=== PATIENT | female | born 1960 | race Caucasian/White ===

== ENCOUNTER 2017-01-11 16:05 | Observation (INO) | payer MEDICARE ==
[~2017-01-11] VITALS: Ht 162.6 cm; Wt 66.0 kg
[2017-01-11 16:08] VITALS: BP 122/86; PULSE 94; RESP 18; TEMP 99.1; O2SAT 97
[2017-01-11] MEDS ORDERED: SODIUM CHLORIDE 0.9% FLUSH 10 ML FLUSH IVF PRN (16:45)
[2017-01-11] MEDS ORDERED: SODIUM CHLOR 0.9% 1000 ML INJ 1,000 ML IV ONE (16:45)
[2017-01-11] MEDS ORDERED: ONDANSETRON HCL 4 MG/2 ML VIAL IVP ONE (16:45)
--- NOTE | 2017-01-11 16:51 | PD ---
HPI Chief Complaint: Neuro Symptoms/ Deficits Time Seen by Provider: 16:26 Travel History International Travel<30 days: No Contact w/Intl Traveler<30days: No Traveled to known affect area: No History of Present Illness HPI 56-year-old female presents to the emergency department for evaluation of neurological problems. Patient states her symptoms started 5 days ago. She states she has had garbled speech, increasing confusion, verbally abusive which are not typical for her. She also reports unsteady gait. She does report a bilateral frontal headache that radiates to the occipital head. Patient denies any current chest pain or shortness of breath. No abdominal pain. She reports nausea. No diarrhea or constipation. Patient had a 10 day psychiatric admission up [place] last year where she was started on some psychiatric medications. According to the at bedside, these are not the same symptoms she had back then. He states she has some paranoia and depression back then. The patient is tearful on my exam due to her confusion and intermittent garbled speech. Patient does report history of neuropathy the left leg. [facility] Social History Alcohol Use: No Tobacco Use: No Substance Use: No Allergies-Medications (Allergen,Severity, Reaction): Coded Allergies: Penicillins (Verified Allergy, Unknown, 01/11/17) gabapentin (Verified Allergy, Unknown, 01/11/17) morphine (Verified Allergy, Unknown, 01/11/17) Review of Systems Except as stated in HPI: all other systems reviewed are Neg Physical Exam Narrative GENERAL: Well-nourished, well-developed female patient, afebrile. SKIN: Focused skin assessment warm/dry. HEAD: Normocephalic. Atraumatic. ENT: Mucosa is dry. No erythema or exudates. No uvular edema. No uvular, palatal , or tonsillar deviation. Airway patent. Nasal turbinates appear normal without nasal blood, purulent drainage or septal hematoma. Bilateral tympanic membranes are clear without erythema or perforation. EYES: No scleral icterus. No injection or drainage. PERRLA. EOM intact. NECK: Supple, trachea midline. No JVD or lymphadenopathy. CARDIOVASCULAR: Regular rate and rhythm without murmurs, gallops, or rubs. RESPIRATORY: Breath sounds equal bilaterally. No accessory muscle use. Lungs sounds are clear to auscultation. GASTROINTESTINAL: Abdomen soft, non-tender, nondistended. MUSCULOSKELETAL: No cyanosis, or edema. Bilateral upper lower extremities strength 5/5. All extremities are neurovascularly intact. BACK: Nontender without obvious deformity. No CVA tenderness. NEUROLOGICAL: Awake and alert. Cranial nerves II through XII intact. Motor and sensory grossly within normal limits. Five out of 5 muscle strength in all muscle groups. Patient has intermittent garbled speech. Patient is able to complete finger to nose bilaterally and [id number] bilaterally, but is very hard to complete due to her confusion and not remembering the steps to complete it. Patient does report decreased sensation to the left upper extremity, left lower extremity. She does state that the decreased sensation left lower extremity is chronic due to neuropathy. Data Data Last Documented VS Vital Signs Date Time Temp Pulse Resp B/P (MAP) Pulse Ox O2 Delivery O2 Flow Rate FiO2 01/11/17 18:03 89 27 114/77 (89) 96 Room Air 01/11/17 16:08 99.1 Orders Orders Electrocardiogram (01/11/17 16:39) Prothrombin Time / Inr (Pt) (01/11/17 16:39) Act Partial Throm Time (Ptt) (01/11/17 16:39) Complete Blood Count With Diff (01/11/17 16:39) Comprehensive Metabolic Panel (01/11/17 16:39) Creatine Kinase (Cpk) (01/11/17 16:39) Troponin I (01/11/17 16:39) Urinalysis - C+S If Indicated (01/11/17 16:39) Ct Brain W/O Iv Contrast(Rout) (01/11/17 16:39) Chest, Single Ap (01/11/17 16:39) Ecg Monitoring (01/11/17 16:39) Iv Access Insert/Monitor (01/11/17 16:39) Oximetry (01/11/17 16:39) Ondansetron Inj (Zofran Inj) (01/11/17 16:45) Sodium Chloride 0.9% Flush (Ns Flush) (01/11/17 16:45) Sodium Chlor 0.9% 1000 Ml Inj (Ns 1000 M (01/11/17 16:45) Magnesium (Mg) (01/11/17 16:39) Urine Culture (01/11/17 16:45) CKMB (01/11/17 17:00) CKMB% (01/11/17 17:00) Potassium Chloride (Kcl) (01/11/17 18:30) Aspirin (Aspirin) (01/11/17 18:45) Labs Laboratory Tests Test 01/11/17 16:45 01/11/17 17:00 Urine Color YELLOW Urine Turbidity CLOUDY Urine pH 6.0 Urine Specific [place] 1.024 Urine Protein 30 mg/dL Urine Glucose (UA) NEG mg/dL Urine Ketones NEG mg/dL Urine Occult Blood NEG Urine Nitrite NEG Urine Bilirubin NEG Urine Urobilinogen 2.0 MG/DL Urine Leukocyte Esterase LARGE Urine RBC 16 /hpf Urine WBC 37 /hpf Urine Squamous Epithelial Cells 70 /hpf Urine Transitional Epithelial Cells 1 /hpf Urine Amorphous Sediment RARE Urine Bacteria MANY /hpf Urine Hyaline Casts 43 /lpf Urine Mucus FEW /lpf Microscopic Urinalysis Comment CATH-CULTURE IND White Blood Count 4.0 TH/MM3 Red Blood Count 4.50 MIL/MM3 Hemoglobin 13.0 GM/DL Hematocrit 38.4 % Mean Corpuscular Volume 85.2 FL Mean Corpuscular Hemoglobin 28.8 PG Mean Corpuscular Hemoglobin Concent 33.8 % Red Cell Distribution Width 15.3 % Platelet Count 233 TH/MM3 Mean Platelet Volume 7.5 FL Neutrophils (%) (Auto) 52.2 % Lymphocytes (%) (Auto) 35.9 % Monocytes (%) (Auto) 9.1 % Eosinophils (%) (Auto) 2.0 % Basophils (%) (Auto) 0.8 % Neutrophils # (Auto) 2.1 TH/MM3 Lymphocytes # (Auto) 1.4 TH/MM3 Monocytes # (Auto) 0.4 TH/MM3 Eosinophils # (Auto) 0.1 TH/MM3 Basophils # (Auto) 0.0 TH/MM3 CBC Comment DIFF FINAL Differential Comment Prothrombin Time 11.3 SEC Prothromb Time International Ratio 1.0 RATIO Activated Partial Thromboplast Time 27.5 SEC Blood Urea Nitrogen 8 MG/DL Creatinine 0.94 MG/DL Random Glucose 91 MG/DL Total Protein 7.5 GM/DL Albumin 4.1 GM/DL Calcium Level 9.1 MG/DL Magnesium Level 2.3 MG/DL Alkaline Phosphatase 96 U/L Aspartate Amino Transf (AST/SGOT) 43 U/L Alanine Aminotransferase (ALT/SGPT) 45 U/L Total Bilirubin 0.5 MG/DL Sodium Level 139 MEQ/L Potassium Level 3.2 MEQ/L Chloride Level 102 MEQ/L Carbon Dioxide Level 30.1 MEQ/L Anion Gap 7 MEQ/L Estimat Glomerular Filtration Rate 62 ML/MIN Total Creatine Kinase 560 U/L Creatine Kinase MB 11.2 NG/ML Creatine Kinase MB % 2.0 % Troponin I LESS THAN 0.02 NG/ML MDM Medical Decision Making Medical Screen Exam Complete: Yes Emergency Medical Condition: Yes Medical Record Reviewed: Yes Interpretation(s) chest x-ray - CONCLUSION: No acute disease. CT brain - CONCLUSION: Normal examination. Differential Diagnosis CVA versus TIA versus electrolyte abnormality versus intracranial abnormality versus psychiatric symptoms Narrative Course 56-year-old female presents to the emergency department for 5 days of intermittent garbled speech, unsteady gait, verbally abusive. She does have intermittent garbled speech and confusion on my exam. She becomes tearful out of frustration. EKG, CBC, CMP, CK, troponin, magnesium, PTT, PT/INR, UA are ordered and pending. Chest x-ray and CT of the brain without contrast are ordered and pending. Patient is given normal saline 1 L IV bolus, Zofran 4 mg IV. EKG shows sinus rhythm, heart rate 75, no acute ST changes. CBC is unremarkable. CMP shows hypokalemia of 3.2. CK is 560. Troponin is less than 0.02. Magnesium is 2.3. Coags shows no acute abnormality. UA shows large leukocyte esterase, 37 WBCs with 70 squamous epithelial cells. Chest x-ray shows no acute disease. CT of the brain is normal. Plan is to admit the patient for further evaluation. She agrees. The patient was discharged in stable condition with instructions, including return instructions and follow up instructions. Diagnosis Primary Impression: Neurological abnormality Admitting Information Admitting Physician Requests: Observation Jackie Fonseca Jan 11, 2017 16:51
[2017-01-11 17:11] VITALS: O2SAT 95
--- NOTE | 2017-01-11 17:12 | RADRPT ---
EXAM DATE/TIME: 01/11/2017 14:52 [facility] COMPARISON: No previous studies available for comparison. INDICATIONS : Chest pain. MEDICAL HISTORY : None. SURGICAL HISTORY : None. ENCOUNTER: Initial ACUITY: 1 day PAIN SCORE: 0/10 LOCATION: Bilateral chest FINDINGS: A single view of the chest demonstrates the lungs to be symmetrically aerated without evidence of mas s, infiltrate or effusion. The cardiomediastinal contours are unremarkable. Osseous structures are intact. CONCLUSION: No acute disease. Faizan Braden Jr., MD on January 11, 2017 at 17:08 Board Certified Radiologist. This report was verified electronically.
[2017-01-11 17:24] LABS: AUTOMATED NEUTROPHIL # 2.1 TH/MM3 (1.8-7.7); BASOPHIL % 0.8 % (0.0-2.0); EOSINOPHIL # 0.1 TH/MM3 (0-0.4); HEMATOCRIT 38.4 % (35.0-46.0); HEMO FLAGS DIFF FINAL; LYMPH % 35.9 % (9.0-44.0); LYMPHOCYTE # 1.4 TH/MM3 (1.0-4.8); MEAN CELL VOLUME 85.2 FL (80.0-100.0); MEAN CORPUSCULAR HEMOGLOBIN 28.8 PG (27.0-34.0); MEAN CORPUSCULAR HGB CONC 33.8 % (32.0-36.0); MONO % 9.1 % (0.0-8.0); NEUT % 52.2 % (16.0-70.0); PLATELET COUNT 233 TH/MM3 (150-450); RED CELL DISTRIBUTION WIDTH 15.3 % (11.6-17.2)
[2017-01-11 17:27] LABS: BACTERIA, URINE MANY /hpf; BLOOD, URINE NEG (NEG); GLUCOSE,URINE NEG (NEG); HYALINE CAST, URINE 43 /lpf (RARE); KETONE, URINE NEG (NEG); MUCUS URINE FEW /lpf (OCC); NITRITE,URINE NEG (NEG); SQUAMOUS EPITHELIAL CELL URINE 70 /hpf (0-5); TRANSITIONAL EPI CELLS, URINE 1 /hpf; URINE COLOR YELLOW (YELLW/STRAW)
[2017-01-11 17:28] LABS: COMMENT (UR) CATH-CULTURE IND; CULTURE IF INDICATED CATH CULTURE IND
--- NOTE | 2017-01-11 17:28 | RADRPT ---
EXAM DATE/TIME: 01/11/2017 16:55 [facility] COMPARISON: No previous studies available for comparison. INDICATIONS : For the last five days patient had confusion,disorientation,memory loss,trouble with gait. RADIATION DOSE: 56.77 CTDIvol (mGy) MEDICAL HISTORY : Fibromyalgia SURGICAL HISTORY : None. ENCOUNTER: Initial ACUITY: 1 day PAIN SCALE: 0/10 LOCATION: cranial TECHNIQUE: Multiple contiguous axial images were obtained of the head. Using automated exposure control and adj ustment of the mA and/or kV according to patient size, radiation dose was kept as low as reasonably a chievable to obtain optimal diagnostic quality images. DICOM format image data is available electro nically for review and comparison. FINDINGS: CEREBRUM: The ventricles are normal for age. No evidence of midline shift, mass lesion, hemorrhage or acute in farction. No extra-axial fluid collections are seen. POSTERIOR FOSSA: The cerebellum and brainstem are intact. The 4th ventricle is midline. The cerebellopontine angle i s unremarkable. EXTRACRANIAL: The visualized portion of the orbits is intact. SKULL: The calvaria is intact. No evidence of skull fracture. CONCLUSION: Normal examination. Mike Rae MD on January 11, 2017 at 17:26 Board Certified Radiologist. This report was verified electronically.
[2017-01-11 17:33] LABS: APTT (PATIENT) 27.5 SEC (24.3-30.1); PROTHROMBIN TIME - PATIENT 11.3 SEC (9.8-11.6)
[2017-01-11 17:43] LABS: ALT (GPT) 45 U/L (10-53); ANION GAP 7 MEQ/L (5-15); AST (GOT) 43 U/L (15-37); BICARBONATE 30.1 MEQ/L (21.0-32.0); BLOOD UREA NITROGEN 8 MG/DL (7-18); CHLORIDE 102 MEQ/L (98-107); GLOMERULAR FILTRATION RATE 62 ML/MIN (>89); MAGNESIUM 2.3 MG/DL (1.5-2.5); POTASSIUM 3.2 MEQ/L (3.5-5.1); SODIUM (NA) 139 MEQ/L (136-145)
[2017-01-11 17:46] LABS: ALKALINE PHOSPHATASE 96 U/L (45-117); CREATINE KINASE 560 U/L (26-192); TOTAL BILIRUBIN ADULT 0.5 MG/DL (0.2-1.0)
[2017-01-11 17:58] LABS: CKMB 11.2 NG/ML (0.5-3.6)
[2017-01-11 18:03] VITALS: BP 114/77; PULSE 89; RESP 27; O2SAT 96
[2017-01-11] MEDS ORDERED: POTASSIUM CHLORIDE 20 MEQ CONTROLLED RELEASE TAB PO ONE (18:30)
[2017-01-11] MEDS ORDERED: ASPIRIN 325 MG TAB PO ONE (18:45)
--- NOTE | 2017-01-11 20:45 | HHI.HP ---
[facility] Service Family Medicine Primary Care Physician No Primary Care Physician Admission Diagnosis neurological symptoms Diagnoses: International Travel<30 Days: No Contact w/Intl Traveler<30days: No Known Affected Area: No History of Present Illness Mrs. Haroldo khalil is a 56-year-old white female with past medical history of fibromyalgia and depression presenting to the ED for confusion and "expressive aphasia." She states that her symptoms started a week ago. She has been experiencing dizziness, lightheadedness, confusion, disorientation and "expressive aphasia". She states that she knows what she wants to say, but things come out totally different. She is also unable to remember what she was going to say when she starts speaking. Her states that sometimes she starts speaking nonsense words or she talks about things that are nonsense and different from what they were talking about in conversation. She states that the symptoms are worse at the end of the day. She is also unable to lift and unable to remember where things are in her home. She states that she has had fibromyalgia for years. 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 However, the weakness happens if she is up a long time or is walking long distances. Her foot feels weak and that she falls. She also has tarsal tunnel that has gotten progressively worse over the past week. She has also had decreased appetite, only eating crackers and cheese. Was recently hospitalized at the end of August at [facility] in [place], [place]. She signed herself into the psychiatric rodriguez for severe depression and anxiety. She was also having paranoid delusions and auditory hallucinations. She felt that people were talking about her and out to get her. She was also having SI from her physical ailments that were overwhelming for her at the time. She regularly sees a psychiatrist, Dr. Mullen, in [place], [place]. She is taking risperidone, duloxetine, benztropine, and bupropion. She states that after starting these meds at her hospital stay she started feeling better. Side effects that she experienced are tremors but she is taking another medication for that. She has recently experienced visual hallucinations, but declined to talk about that. No SI/HI. Of note, her 2-year-old granddaughter was recently diagnosed with cancer yesterday. No recent illnesses, no fever or chills, no headaches. During the interview she repeatedly asked for me to repeat my questions right after I asked them because she couldn't remember what I had just said. She was also intermittently tearful from frustration about her situation. (Namrata Vicente MD R1) Review of Systems Constitutional: COMPLAINS OF: Dizziness, Change in appetite, Night Sweats (for years), DENIES: Fever, Weight loss, Chills Eyes: DENIES: Blurred vision, Eye pain Ears, nose, mouth, throat: COMPLAINS OF: Tinnitus, DENIES: Hearing loss, Running Nose Respiratory: DENIES: Cough Cardiovascular: COMPLAINS OF: Lower Extremity Edema (comes and goes), DENIES: Chest pain, Palpitations, Syncope Gastrointestinal: COMPLAINS OF: Abdominal pain (epigastric from heartburn), Nausea, DENIES: Bloody stools, Constipation, Diarrhea Genitourinary: COMPLAINS OF: Urinary frequency, Urgency, Hematuria (on and off issue), DENIES: Dysuria Musculoskeletal: COMPLAINS OF: Back pain Integumentary: DENIES: Rash Neurologic: COMPLAINS OF: Localized weakness (left leg chronic), Paresthesias ( left leg chronic), Speech Problems (slurred speech and aphasia, nonsense words) , Tremor (from psych medications), Poor Balance, DENIES: Headache Psychiatric: COMPLAINS OF: Anxiety, Confusion, Depression, Hallucinations (not recently (audio), visual last couple of days (doesn't want to discuss)), Suicidal Ideation (Namrata Vicente MD R1) Past Family Social History Past Medical History Fibromyalgia Depression and anxiety Past Surgical History Back surgery in 2015- release pinched nerves Cholecystectomy Left foot surgery x3- nerve was cut at last surgery (unsure of which nerve) Reported Medications Reported Meds & Active Scripts Active Vitamin D-3 (Cholecalciferol) 1,000 Unit Cap 1,000 Units PO HS Bupropion HCl ER 24 HR (Bupropion HCl) 150 Mg Tab 150 Mg PO DAILY Benztropine (Benztropine Mesylate) 0.5 Mg Tab 0.5 Mg PO BID Duloxetine DR (Duloxetine HCl) 60 Mg Capdr 60 Mg PO DAILY Risperidone 0.5 Mg Tab 0.5 Mg PO Q12HR (Namrata Vicente MD R1) Allergies: Coded Allergies: Penicillins (Verified Allergy, Unknown, 01/11/17) gabapentin (Verified Allergy, Unknown, 01/11/17) morphine (Verified Allergy, Unknown, 01/11/17) Family History Mother- from ovarian cancer Father- suicide Brother- healthy Social History Lives in [place] 9 months out of the year, lives in [place] the other months On disability for fibromyalgia, unemployed Alcohol -none in weeks Tobacco- none Illicit Drugs- none (Namrata Vicente MD R1) Physical Exam Vital Signs Vital Signs Date Time Temp Pulse Resp B/P (MAP) Pulse Ox O2 Delivery O2 Flow Rate FiO2 01/11/17 18:03 89 27 114/77 (89) 96 Room Air 01/11/17 17:11 95 Room Air 01/11/17 16:08 99.1 94 18 122/86 (98) 97 Room Air Physical Exam GENERAL: This is a well-nourished, well-developed patient sitting in bed wrapped in several blankets, in no apparent distress. SKIN: No rashes, ecchymoses or lesions. Cool and dry. HEAD: Atraumatic. Normocephalic. EYES: Pupils equal round and reactive. Extraocular motions intact. No scleral icterus. No injection or drainage. ENT: Nose without bleeding, purulent drainage or septal hematoma. Throat without erythema, tonsillar hypertrophy or exudate. Uvula midline. Airway patent. NECK: Trachea midline. No JVD or lymphadenopathy. Supple, nontender, no meningeal signs. CARDIOVASCULAR: Regular rate and rhythm without murmurs, gallops, or rubs. RESPIRATORY: Clear to auscultation. Breath sounds equal bilaterally. No wheezes , rales, or rhonchi. GASTROINTESTINAL: Abdomen soft,tenderness at RLQ and suprapubic regions, nondistended. No hepato-splenomegaly, or palpable masses. No guarding. BACK: Right CVA tenderness MUSCULOSKELETAL: Extremities without clubbing, cyanosis, or edema. No joint tenderness, effusion, or edema noted. No calf tenderness. Negative Homans sign bilaterally. NEUROLOGICAL: Awake and alert. Cranial nerves II through XII intact. Motor and sensory grossly within normal limits. Confusion with strength testing, but 4/5 in LUE and LLE, 5/5 in RUE and RLE. Heel -to-main normal bilaterally. Finger-to- nose normal bilaterally once redirected several times. No pronator drift. Sensation intact in all 4 extremities. SPEECH: Normal speech with periodic pauses to think about what to say, but fluent. Would pause at times and state that she did not remember what she was saying or would ask to repeat the question. No error in content. Intermittently tearful Laboratory Laboratory Tests Test 01/11/17 16:45 01/11/17 17:00 Urine Color YELLOW Urine Turbidity CLOUDY Urine pH 6.0 Urine Specific [place] 1.024 Urine Protein 30 Urine Glucose (UA) NEG Urine Ketones NEG Urine Occult Blood NEG Urine Nitrite NEG Urine Bilirubin NEG Urine Urobilinogen 2.0 Urine Leukocyte Esterase LARGE Urine RBC 16 Urine WBC 37 Urine Squamous Epithelial Cells 70 Urine Transitional Epithelial Cells 1 Urine Amorphous Sediment RARE Urine Bacteria MANY Urine Hyaline Casts 43 Urine Mucus FEW Microscopic Urinalysis Comment CATH-CULTURE IND White Blood Count 4.0 Red Blood Count 4.50 Hemoglobin 13.0 Hematocrit 38.4 Mean Corpuscular Volume 85.2 Mean Corpuscular Hemoglobin 28.8 Mean Corpuscular Hemoglobin Concent 33.8 Red Cell Distribution Width 15.3 Platelet Count 233 Mean Platelet Volume 7.5 Neutrophils (%) (Auto) 52.2 Lymphocytes (%) (Auto) 35.9 Monocytes (%) (Auto) 9.1 Eosinophils (%) (Auto) 2.0 Basophils (%) (Auto) 0.8 Neutrophils # (Auto) 2.1 Lymphocytes # (Auto) 1.4 Monocytes # (Auto) 0.4 Eosinophils # (Auto) 0.1 Basophils # (Auto) 0.0 CBC Comment DIFF FINAL Differential Comment Prothrombin Time 11.3 Prothromb Time International Ratio 1.0 Activated Partial Thromboplast Time 27.5 Blood Urea Nitrogen 8 Creatinine 0.94 Random Glucose 91 Total Protein 7.5 Albumin 4.1 Calcium Level 9.1 Magnesium Level 2.3 Alkaline Phosphatase 96 Aspartate Amino Transf (AST/SGOT) 43 Alanine Aminotransferase (ALT/SGPT) 45 Total Bilirubin 0.5 Sodium Level 139 Potassium Level 3.2 Chloride Level 102 Carbon Dioxide Level 30.1 Anion Gap 7 Estimat Glomerular Filtration Rate 62 Total Creatine Kinase 560 Creatine Kinase MB 11.2 Creatine Kinase MB % 2.0 Troponin I LESS THAN 0.02 Date/Time Source Procedure Growth Status 01/11/17 16:45 Urine Catheterized Urine Urine Culture Pending Received (Namrata Vicente MD R1) Result Diagram: 01/11/17 1700 01/11/17 1700 Imaging Last Impressions Head CT 01/11/17 1639 Signed Impressions: Service Date/Time: Wednesday, January 11, 2017 16:55 - CONCLUSION: Normal examination. Mike Rae MD Chest X-Ray 01/11/17 1639 Signed Impressions: Service Date/Time: Wednesday, January 11, 2017 14:52 - CONCLUSION: No acute disease. Faizan Braden Jr., MD (Namrata Vicente MD R1) Caprini VTE Risk Assessment Caprini VTE Risk Assessment: Mod/High Risk (score >= 2) Caprini Risk Assessment Model Point Value = 1 Point Value = 2 Point Value = 3 Point Value = 5 Age 41-60 Minor surgery BMI > 25 kg/m2 Swollen legs Varicose veins or History of unexplained or recurrent spontaneous Oral contraceptives or hormone replacement Sepsis (< 1 month) Serious lung disease, including pneumonia (< 1 month) Abnormal pulmonary function Acute myocardial infarction Congestive heart failure (< 1 month) History of inflammatory bowel disease Medical patient at bed rest Age 61-74 Arthroscopic surgery Major open surgery (> 45 min) Laparoscopic surgery (> 45 min) Malignancy Confined to bed (> 72 hours) Immobilizing plaster cast Central venous access Age >= 75 History of VTE Family history of VTE Factor V Leiden Prothrombin [id number] Lupus anticoagulant Anticardiolipin antibodies Elevated serum homocysteine Heparin-induced thrombocytopenia Other congenital or acquired thrombophilia Stroke (< 1 month) Elective arthroplasty Hip, pelvis, or leg fracture Acute spinal cord injury (< 1 month) Prophylaxis Regimen Total Risk Factor Score Risk Level Prophylaxis Regimen 0-1 Low Early ambulation 2 Moderate Order ONE of the following: *Sequential Compression Device (SCD) *Heparin 5000 units SQ BID 3-4 Higher Order ONE of the following medications: *Heparin 5000 units SQ TID *Enoxaparin/Lovenox 40 mg SQ daily (WT < 150 kg, CrCl > 30 mL/min) *Enoxaparin/Lovenox 30 mg SQ daily (WT < 150 kg, CrCl > 10-29 mL/min) *Enoxaparin/Lovenox 30 mg SQ BID (WT < 150 kg, CrCl > 30 mL/min) AND/OR *Sequential Compression Device (SCD) 5 or more Highest Order ONE of the following medications: *Heparin 5000 units SQ TID (Preferred with Epidurals) *Enoxaparin/Lovenox 40 mg SQ daily (WT < 150 kg, CrCl > 30 mL/min) *Enoxaparin/Lovenox 30 mg SQ daily (WT < 150 kg, CrCl > 10-29 mL/min) *Enoxaparin/Lovenox 30 mg SQ BID (WT < 150 kg, CrCl > 30 mL/min) AND *Sequential Compression Device (SCD) (Namrata Vicente MD R1) Assessment and Plan Assessment and Plan Mrs. Zarco is a 56yo with PMH of fibromyalgia and depression presenting with difficulty with speech and confusion. Head CT was negative. She is admitted to observation. Code Status Full Code Discussed Condition With Dr. Mary Kingston (Namrata Vicente MD R1) Problem List: (1) Neurological abnormality ICD Codes: R29.818 - Other symptoms and signs involving the nervous system Status: Acute Plan: Pt presenting with difficulty in speech, confusion, increasing forgetfulness. Has chronic weakness in her LLE. Not concerned for expressive aphasia as patient states that it happens mainly in the evening time, her speech is fluent, no agrammatism. Head CT, brain MRI, brain MRA all negative. No clear etiology to her symptoms. Suspect a psychological component due to her PMH. Will rule out seizure etiology as well. Symptoms could also be explained from sepsis due to UTI. Will also rule out polymyositis due to elevated CPK. * CPK elevated at 560, will repeat x2 overnight * ANIYAH, ESR ordered to rule out autoimmune etiology * CKMB elevated at 11.2, will repeat x2 * Troponin negative x1, will repeat x2 with EKG * B12 and folate pending * Repeat CBC and CMP in AM * UDS pending * EEG ordered to rule out seizures * Neurology consulted, appreciate recommendations * Psychiatry consulted, appreciate recommendations * PT consulted for evaluation * Neuro checks q4h * Fall precautions (2) UTI (urinary tract infection) ICD Codes: N39.0 - Urinary tract infection, site not specified Status: Acute Plan: Pt with urinary frequency, urgency, and intermittent hematuria. UA shows large leukocyte esterase, high RBCs and WBCs, and many bacteria. No leukocytosis. Pt had right CVA tenderness on exam, but afebrile with no fever/ chills at home. * Given one dose of Ciprofloxacin 400mg IV on 01/12 * Will start her on Bactrim 800-160mg po q12h later in the AM on 01/12 * IVF at 1.5 maintenance, NS @ 160mls/hr * Urine cx pending (3) Depression ICD Codes: F32.9 - Major depressive disorder, single episode, unspecified Status: Chronic Plan: Pt with a hx of psychiatric hospitalization due to SI, depression, paranoid delusions, and auditory hallucinations. Patient tearful on examination and speaking of visual hallucinations, but unwilling to talk about them. Denies SI at this time. * Will hold at home medications until she sees Psychiatry * Psychiatry consulted, appreciate recommendations * TSH and Risperidone level pending (4) Elevated creatine kinase level ICD Codes: R74.8 - Abnormal levels of other serum enzymes Status: Acute Plan: CPK elevated to 560. Will follow. (5) Hypokalemia ICD Codes: E87.6 - Hypokalemia Status: Acute Plan: Potassium low at 3.2 upon admission to ED. * Given Potassium Chlorida 40 meq po in ED * Will monitor and replete as needed (6) FEN Status: Acute Plan: Fluids: tolerating PO and NS @ 160ml/hr Electrolytes: hypokalemia noted, monitor and replete as needed Nutrition: regular diet DVT Prophylaxis: Early ambulation. Lovenox 40mg subQ q24hr since Head CT negative GI Prophylaxis: none indicated at this time Fever/Pain: Tylenol 650mg po PRN/Motrin 600mg po TID PRN (takes this regimen at home) Nausea: Zofran 4mg PRN (Namrata Vicente MD R1) Problem Qualifiers (1) UTI (urinary tract infection): Namrata Vicente MD R1 Jan 11, 2017 20:45 Sanjuanita Mejia MD Jan 12, 2017 13:05
[2017-01-11] MEDS ORDERED: DULO1CAP3 PO (20:49)
[2017-01-11] MEDS ORDERED: BENZ0.5T PO (20:49)
[2017-01-11] MEDS ORDERED: BUPR150T3 PO (20:49)
[2017-01-11] MEDS ORDERED: RISP0.5T2 PO (20:49)
[2017-01-11] MEDS ORDERED: D31000CA3 PO (20:49)
[2017-01-11] MEDS ORDERED: ACETAMINOPHEN 325 MG TAB PO PRN (22:15)
[2017-01-11] MEDS ORDERED: MAGNESIUM HYDROXIDE SUSP 30 ML CUP PO PRN (22:15)
[2017-01-11] MEDS ORDERED: SENNOSIDES 8.6 MG TAB PO PRN (22:15)
[2017-01-11] MEDS ORDERED: ONDANSETRON HCL 4 MG/2 ML VIAL IVP PRN (22:15)
[2017-01-11] MEDS ORDERED: NALOXONE HCL 0.4 MG/ML AMP IV PUSH PRN (22:15)
[2017-01-11] MEDS ORDERED: BISACODYL 10 MG SUPP RECTAL PRN (22:15)
[2017-01-11] MEDS ORDERED: LACTULOSE SYRUP 20 GM/30 ML CUP PO PRN (22:15)
[2017-01-11 22:20] VITALS: BP 117/78; PULSE 83; RESP 16; O2SAT 94
[2017-01-11] MEDS: ENOXAPARIN SODIUM 40 MG/0.4 ML SYRINGE SQ SCH (22:21)
[2017-01-11] MEDS: SODIUM CHLOR 0.9% 1000 ML INJ 1,000 ML IV SCH (22:29)
[2017-01-11] MEDS ORDERED: IBUPROFEN 600 MG TAB PO PRN (22:30)
--- NOTE | 2017-01-11 23:07 | RADRPT ---
EXAM DATE/TIME: 01/11/2017 22:42 [facility] COMPARISON: CT BRAIN W/O CONTRAST, January 11, 2017, 16:55. INDICATIONS : CVA. Slurred speech for the last 5 days. MEDICAL HISTORY : None. SURGICAL HISTORY : Cholecystectomy. Foot sx. ENCOUNTER: Initial ACUITY: 4-6 days PAIN SCORE: 5/10 LOCATION: Bilateral cranial TECHNIQUE: Multiplanar, multisequence MRI of the brain was performed without contrast. FINDINGS: CEREBRUM: The ventricles are normal for age. No evidence of midline shift, mass lesion, hemorrhage or acute in farction. No extraaxial fluid collections are seen. The pituitary gland and suprasellar cistern are normal in configuration. WHITE MATTER: No significant signal abnormalities are seen in the white matter. POSTERIOR FOSSA: The cerebellum and brainstem are intact. The 4th ventricle is midline. The cerebellopontine angle is unremarkable. The cerebellar tonsils are normal in position. DIFFUSION IMAGING: No focal areas of restricted diffusion are seen. No evidence of acute infarction. EXTRACRANIAL: The visualized portions of the orbits and paranasal sinuses are unremarkable. CONCLUSION: Normal noncontrast brain MRI. Santiago Brennan MD on January 11, 2017 at 23:05 Board Certified Radiologist. This report was verified electronically.
--- NOTE | 2017-01-11 23:25 | RADRPT ---
EXAM DATE/TIME: 01/11/2017 22:42 [facility] COMPARISON: MRI BRAIN W/O CONTRAST, January 11, 2017, 22:42. CT BRAIN W/O CONTRAST, January 11, 2017, 16:55. INDICATIONS : CVA. MEDICAL HISTORY : None. SURGICAL HISTORY : Cholecystectomy. Foot sx. ENCOUNTER: Initial ACUITY: 1 day PAIN SCORE: 5/10 LOCATION: Bilateral cranial Please note a normal MRA of the brain does not entirely exclude the possibility of a small aneurysm, nor the possibility of distal intracranial vessel disease. TECHNIQUE: 3D time of flight MRA was performed. Source images, multiplanar STS MIP, and 3D volume MIP reconstru ctions were reviewed. FINDINGS: P1 segment on the right is very small, probably congenital/developmental but conceivably intracranial atherosclerosis. There are well-formed posterior communicating arteries on both sides. There is good filling of the P2 and distal segments on both sides. The anterior circulation is within normal limit s. No aneurysms are demonstrated. CONCLUSION: No acute abnormality of the intracranial vessels. Small first segment of the right posterior cerebral distribution as above. Santiago Brennan MD on January 11, 2017 at 23:19 Board Certified Radiologist. This report was verified electronically.
[2017-01-11 23:35] VITALS: BP 113/73; PULSE 83; RESP 16; TEMP 97.7; O2SAT 96
[2017-01-12] VITALS (12 sets, daily range): BP systolic 103–126; BP diastolic 63–80; PULSE 68–79; RESP 15–24; TEMP 97.5–98.6; O2SAT 92–98
[2017-01-12] MEDS ORDERED: CIPROFLOXACIN 400 MG PREMIX 200 ML IV SCH (01:00)
[2017-01-12] MEDS ORDERED: SULFAMETHOXAZOLE-TRIMETHOPRIM DS 800-160 MG TAB PO ONE (01:15)
[2017-01-12 02:23] LABS: CREATINE KINASE 384 U/L (26-192)
[2017-01-12 02:51] LABS: CKMB 6.4 NG/ML (0.5-3.6)
[2017-01-12 05:42] LABS: AUTOMATED NEUTROPHIL # 1.1 TH/MM3 (1.8-7.7); BASOPHIL % 0.9 % (0.0-2.0); EOSINOPHIL # 0.1 TH/MM3 (0-0.4); EOSINOPHIL % 2.8 % (0.0-4.0); HEMATOCRIT 34.4 % (35.0-46.0); HEMO FLAGS DIFF FINAL; LYMPH % 47.6 % (9.0-44.0); LYMPHOCYTE # 1.4 TH/MM3 (1.0-4.8); MEAN CELL VOLUME 85.1 FL (80.0-100.0); MEAN CORPUSCULAR HEMOGLOBIN 28.6 PG (27.0-34.0); MEAN CORPUSCULAR HGB CONC 33.6 % (32.0-36.0); MONO % 10.4 % (0.0-8.0); NEUT % 38.3 % (16.0-70.0); PLATELET COUNT 197 TH/MM3 (150-450); RED BLOOD COUNT 4.05 MIL/MM3 (4.00-5.30); RED CELL DISTRIBUTION WIDTH 15.1 % (11.6-17.2); WHITE BLOOD COUNT 2.9 TH/MM3 (4.0-11.0)
[2017-01-12 06:12] LABS: ALKALINE PHOSPHATASE 75 U/L (45-117); ALT (GPT) 32 U/L (10-53); ANION GAP 6 MEQ/L (5-15); AST (GOT) 28 U/L (15-37); BICARBONATE 28.1 MEQ/L (21.0-32.0); BLOOD UREA NITROGEN 6 MG/DL (7-18); CHLORIDE 106 MEQ/L (98-107); CREATINE KINASE 340 U/L (26-192); GLOMERULAR FILTRATION RATE 76 ML/MIN (>89); POTASSIUM 3.4 MEQ/L (3.5-5.1); SODIUM (NA) 140 MEQ/L (136-145); TOTAL BILIRUBIN ADULT 0.4 MG/DL (0.2-1.0)
[2017-01-12] MEDS: SODIUM CHLOR 0.9% 1000 ML INJ 1,000 ML IV SCH ×3 (06:14→20:55)
[2017-01-12 06:26] LABS: CKMB 5.5 NG/ML (0.5-3.6)
[2017-01-12] MEDS ORDERED: POTASSIUM CHLORIDE 10 MEQ CONTROLLED RELEASE TAB PO ONE (08:00)
[2017-01-12] MEDS: DOCUSATE SODIUM 50 MG/SENNA 8.6 MG TAB PO SCH ×2 (08:11→20:55)
--- NOTE | 2017-01-12 10:25 | EKG ---
Date Performed: 01/12/2017 Time Performed: 06:00:36 PTAGE: 56 years EKG: Sinus rhythm LOW QRS VOLTAGE IN PRECORDIAL LEADS BORDERLINE ECG PREVIOUS TRACING : 01/12/2017 00.08 DOCTOR: Javier Palomares Interpretating Date/Time 01/12/2017 10:23:39
--- NOTE | 2017-01-12 10:28 | EKG ---
Date Performed: 01/12/2017 Time Performed: 00:08:55 PTAGE: 56 years EKG: Sinus rhythm POSSIBLE INFERIOR MYOCARDIAL INFARCTION BORDERLINE ECG PREVIOUS TRACING : 01/11/2017 18.59 DOCTOR: Javier Palomares Interpretating Date/Time 01/12/2017 10:26:15
--- NOTE | 2017-01-12 10:34 | EKG ---
Date Performed: 01/11/2017 Time Performed: 18:59:23 PTAGE: 56 years EKG: Sinus rhythm NORMAL ECG PREVIOUS TRACING : 01/11/2017 18.58 DOCTOR: Javier Palomares Interpretating Date/Time 01/16/2017 07:32:55
[2017-01-12] MEDS: SULFAMETHOXAZOLE-TRIMETHOPRIM DS 800-160 MG TAB PO SCH ×2 (11:08→20:55)
[2017-01-12] MEDS ORDERED: buPROPion HCL 150 MG SUSTAINED RELEASE TAB PO SCH (11:45)
[2017-01-12] MEDS ORDERED: DULoxetine HCl DR 60 MG CAP PO SCH (11:45)
--- NOTE | 2017-01-12 12:08 | PD.PSY.CON ---
Provisional Diagnosis Admission Date Jan 11, 2017 at 20:22 Milton I. Delirium due to underlying medical conditions, history of depression with psychosis Milton II. Deferred Milton III. Fibromyalgia Milton IV. Sudden onset of altered mental status Milton V. 50 History of Present Illness Service Psychiatry Consult Requested By Medical team Reason for Consult Alter mental status Primary Care Physician No Primary Care Physician HPI The patient is a 56-year-old woman, domiciled with her in [facility], unemployed, supported by disability, with psychiatric history of major depressive disorder with psychosis, 1 previous psychiatric hospitalization [place], [place], for 10 days, last summer, when she was discharged in Wellbutrin 150 mg twice a day, Cymbalta 60 mg and risperidone 0.5 mg twice a day , benztropine 0.5 mg twice a day, medications that she is is still taking, established outpatient care with Dr. Mullen in [facility], with past medical history of fibromyalgia, presenting to the ED for confusion and "expressive aphasia." S he states that her symptoms started a week ago. She has been experiencing dizziness, lightheadedness, confusion, disorientation and "expressive aphasia". She states that she knows what she wants to say, but things come out totally different. She is also unable to remember what she was going to say when she starts speaking. Her states that sometimes she starts speaking nonsense words or she talks about things that are nonsense and different from what they were talking about in conversation. She states that the symptoms are worse at the end of the day. She is also unable to lift and unable to remember where things are in her home. Dx with CARRIE in the ER. Given one dose of Ciprofloxacin 400mg IV on 01/12. Will start her on Bactrim 800-160mg po q12h later in the AM on 01/12. IVF at 1.5 maintenance, NS @ 160mls/hr. Urine cx pending. Patient was consulted to psychiatry due to after mental status. Chart was reviewed. Case discussed with nursing charge. Collateral information from her obtained. Patient is calm, superficially cooperative, sleepy, very confused. She says that she finally had a good night last night. Patient stated that she doesn't understand what is going on with her. She says that she has been feeling very dizzy, lethargic, confused and disoriented. She says that she is unable to think straight and everyday by the day of the end of the day she has difficulties talking. During the evaluation the patient has a marked poverty of speech and blocking thought. She is oriented in person, partially oriented in place, and completely disoriented in time. Her speech is even and I don't note any aphasia.. She denies suicidal and homicidal ideation, she denies visual and auditory hallucinations. As per , Fidel Mcgrath, , she as recently hospitalized at the end of August at [facility] in [place], [place]. She signed herself into the psychiatric [facility] for severe depression and anxiety. She was also having paranoid delusions and auditory hallucinations. She felt that people were talking about her and out to get her. She was also having SI from her physical ailments that were overwhelming for her at the time. She regularly sees a psychiatrist, Dr. Mullen, in [place], [place]. She is taking risperidone, duloxetine, benztropine, and bupropion. She states that after starting these meds at her hospital stay she started feeling better. Side effects that she experienced are tremors but she is taking another medication for that. Her 2- year-old granddaughter was recently diagnosed with cancer yesterday. He says that current presentation of altered mental status started about 5 days ago. Since she was discharged from psychiatry until 5 days ago patient was mostly a baseline and doing okay. Whenever, dizziness, incoherent speech, lethargy, confusion and disorientation start as early 5 days ago. He noted that some cognition declined is going on in the patient because in the last days he became aware that the patient takes her medication several times a day thinking that she had not taken it before. thinking that is possible that medication intoxication could have some responsibility in current presentation. Review of Systems Constitutional: DENIES: Diaphoretic episodes, Fatigue, Fever, Weight gain, Weight loss, Chills, Dizziness, Change in appetite, Night Sweats Endocrine: DENIES: Abnorml menstrual pattern, Heat/cold intolerance, Polydipsia , Polyuria, Polyphagia Eyes: DENIES: Blurred vision, Diplopia, Eye inflammation, Eye pain, Vision loss , Photosensitivity, Double Vision Respiratory: DENIES: Apneas, Cough, Snoring, Wheezing, Hemoptysis, Sputum production, Shortness of breath Cardiovascular: DENIES: Chest pain, Palpitations, Syncope, Dyspnea on Exertion , PND, Lower Extremity Edema, Orthopnea, Claudication Gastrointestinal: DENIES: Abdominal pain, Black stools, Bloody stools, Constipation, Diarrhea, Nausea, Vomiting, Difficulty Swallowing, Anorexia Genitourinary: DENIES: Abnormal vaginal bleeding, Dysmenorrhea, Dyspareunia, Sexual dysfunction, Urinary frequency, Urinary incontinence, Urgency, Hematuria , Dysuria, Nocturia, Vaginal discharge Musculoskeletal: DENIES: Joint pain, Muscle aches, Stiffness, Joint Swelling, Back pain, Neck pain Integumentary: DENIES: Abnormal pigmentation, Pruritus, Rash, Nail changes, Breast masses, Breast skin changes, Nipple discharge Hematologic/lymphatic: DENIES: Bruising, Lymphadenopathy Immunologic/allergic: DENIES: Eczema, Urticaria Neurologic: DENIES: Abnormal gait, Headache, Localized weakness, Paresthesias, Seizures, Speech Problems, Tremor, Poor Balance Psychiatric: COMPLAINS OF: Confusion Past Family Social History Coded Allergies: Penicillins (Verified Allergy, Unknown, 01/11/17) gabapentin (Verified Allergy, Unknown, 01/11/17) morphine (Verified Allergy, Unknown, 01/11/17) Active Scripts Cholecalciferol (Vitamin D-3) 1,000 Unit Cap, 1000 UNITS PO HS, #1 TAB Prov:Namrata Vicente MD R1 01/11/17 Bupropion HCl ER 24 HR (Bupropion HCl ER 24 HR) 150 Mg Tab, 150 MG PO DAILY for Control Depression, #1 TAB 0 Refills Prov:Namrata Vicente MD R1 01/11/17 Benztropine (Benztropine) 0.5 Mg Tab, 0.5 MG PO BID, #60 TAB 0 Refills Prov:Namrata Vicente MD R1 01/11/[address] (Duloxetine DR) 60 Mg Capdr, 60 MG PO DAILY, #30 CAP 0 Refills Prov:Namrata Vicente MD R1 01/11/17 Risperidone (Risperidone) 0.5 Mg Tab, 0.5 MG PO Q12HR, #60 TAB 0 Refills Prov:Namrata Vicente MD R1 01/11/17 Current Medications Medications (Trade) Dose Ordered Sig/Eric Route Start Time Stop Time Status Last Admin (NS Flush) 2 ml UNSCH PRN IVF 01/11/17 16:45 Sodium Chloride 1,000 ml @ 160 mls/hr Q6H15M IV 01/11/17 22:07 01/12/17 06:14 (Tylenol) 650 mg Q4H PRN PO 01/11/17 22:15 (Zofran Inj) 4 mg Q6H PRN IVP 01/11/17 22:15 (Lovenox Inj) 40 mg Q24H SQ 01/11/17 22:00 01/11/17 22:21 (Narcan Inj) 0.4 mg UNSCH PRN IV PUSH 01/11/17 22:15 (Leslye-Colace) 1 tab BID PO 01/12/17 09:00 (Milk Of Magnesia Liq) 30 ml Q12H PRN PO 01/11/17 22:15 (Senokot) 17.2 mg Q12H PRN PO 01/11/17 22:15 (Dulcolax Supp) 10 mg DAILY PRN RECTAL 01/11/17 22:15 (Lactulose Liq) 30 ml DAILY PRN PO 01/11/17 22:15 (Motrin) 600 mg Q8H PRN PO 01/11/17 22:30 01/12/17 08:19 (Bactrim Ds 800-160 Mg) 1 tab Q12HR PO 01/12/17 11:00 01/12/17 11:08 Family Psych History Her father committed suicide Social History Patient was born and raised in [place], he lives in [facility] with her , is unemployed, supported by disability, her highest level of education is high school Patient's Strengths (min. 2) Family support Physical Exam Patient is lethargic, hypoactive, confused Vital Signs Vital Signs Date Time Temp Pulse Resp B/P (MAP) Pulse Ox O2 Delivery O2 Flow Rate FiO2 01/12/17 11:11 98.1 79 22 126/80 (95) 93 01/12/17 08:09 Nasal Cannula 2.00 I/O 01/12/17 01/12/17 01/13/17 08:00 16:00 00:00 Intake Total 1200 ml Balance 1200 ml Lab Results Test 01/11/17 16:45 01/11/17 17:00 01/12/17 01:07 01/12/17 04:36 Urine Color YELLOW Urine Turbidity CLOUDY Urine pH 6.0 Urine Specific Sigel 1.024 Urine Protein 30 mg/dL Urine Glucose (UA) NEG mg/dL Urine Ketones NEG mg/dL Urine Occult Blood NEG Urine Nitrite NEG Urine Bilirubin NEG Urine Urobilinogen 2.0 MG/DL Urine Leukocyte Esterase LARGE Urine RBC 16 /hpf Urine WBC 37 /hpf Urine Squamous Epithelial Cells 70 /hpf Urine Transitional Epithelial Cells 1 /hpf Urine Amorphous Sediment RARE Urine Bacteria MANY /hpf Urine Hyaline Casts 43 /lpf Urine Mucus FEW /lpf Microscopic Urinalysis Comment CATH-CULTURE IND Urine Opiates Screen NEG Urine Barbiturates Screen NEG Urine Amphetamines Screen NEG Urine Benzodiazepines Screen NEG Urine Cocaine Screen NEG Urine Cannabinoids Screen POS White Blood Count 4.0 TH/MM3 2.9 TH/MM3 Red Blood Count 4.50 MIL/MM3 4.05 MIL/MM3 Hemoglobin 13.0 GM/DL 11.6 GM/DL Hematocrit 38.4 % 34.4 % Mean Corpuscular Volume 85.2 FL 85.1 FL Mean Corpuscular Hemoglobin 28.8 PG 28.6 PG Mean Corpuscular Hemoglobin Concent 33.8 % 33.6 % Red Cell Distribution Width 15.3 % 15.1 % Platelet Count 233 TH/MM3 197 TH/MM3 Mean Platelet Volume 7.5 FL 7.5 FL Neutrophils (%) (Auto) 52.2 % 38.3 % Lymphocytes (%) (Auto) 35.9 % 47.6 % Monocytes (%) (Auto) 9.1 % 10.4 % Eosinophils (%) (Auto) 2.0 % 2.8 % Basophils (%) (Auto) 0.8 % 0.9 % Neutrophils # (Auto) 2.1 TH/MM3 1.1 TH/MM3 Lymphocytes # (Auto) 1.4 TH/MM3 1.4 TH/MM3 Monocytes # (Auto) 0.4 TH/MM3 0.3 TH/MM3 Eosinophils # (Auto) 0.1 TH/MM3 0.1 TH/MM3 Basophils # (Auto) 0.0 TH/MM3 0.0 TH/MM3 CBC Comment DIFF FINAL DIFF FINAL Differential Comment Prothrombin Time 11.3 SEC Prothromb Time International Ratio 1.0 RATIO Activated Partial Thromboplast Time 27.5 SEC Blood Urea Nitrogen 8 MG/DL 6 MG/DL Creatinine 0.94 MG/DL 0.79 MG/DL Random Glucose 91 MG/DL 70 MG/DL Total Protein 7.5 GM/DL 5.9 GM/DL Albumin 4.1 GM/DL 3.1 GM/DL Calcium Level 9.1 MG/DL 8.4 MG/DL Magnesium Level 2.3 MG/DL Alkaline Phosphatase 96 U/L 75 U/L Aspartate Amino Transf (AST/SGOT) 43 U/L 28 U/L Alanine Aminotransferase (ALT/SGPT) 45 U/L 32 U/L Total Bilirubin 0.5 MG/DL 0.4 MG/DL Sodium Level 139 MEQ/L 140 MEQ/L Potassium Level 3.2 MEQ/L 3.4 MEQ/L Chloride Level 102 MEQ/L 106 MEQ/L Carbon Dioxide Level 30.1 MEQ/L 28.1 MEQ/L Anion Gap 7 MEQ/L 6 MEQ/L Estimat Glomerular Filtration Rate 62 ML/MIN 76 ML/MIN Total Creatine Kinase 560 U/L 384 U/L 340 U/L Creatine Kinase MB 11.2 NG/ML 6.4 NG/ML 5.5 NG/ML Creatine Kinase MB % 2.0 % 1.7 % 1.6 % Troponin I LESS THAN 0.02 NG/ML LESS THAN 0.02 NG/ML LESS THAN 0.02 NG/ML Phosphorus Level 3.1 MG/DL Vitamin B12 Level 934 PG/ML Folate GREATER THAN 20.0 NG/ML Thyroid Stimulating Hormone 3rd Gen 0.907 uIU/ML Erythrocyte Sedimentation Rate 14 mm/hr Date/Time Source Procedure Growth Status 01/11/17 16:45 Urine Catheterized Urine Urine Culture Pending Received Mental Status Examination Appearance: Appropriate Consciousness: Lethargic Orientation: Person Motor Activity: Normal gait Speech: Hesitant Language: Adequate Fund of Knowledge: Inadequate Attention and Concentration: Inadequate Memory: Impaired Mood: Good Affect: Appropriate Thought Process & Associations: Loose associations Thought Content: Appropriate Hallucination Type: None Delusion Type: None Suicidal Ideation: No Suicidal Plan: No Suicidal Intention: No Homicidal Ideation: No Homicidal Plan: No Homicidal Intention: No Insight: Adequate Judgment: Adequate Assessment & Plan Problem List: (1) Delirium ICD Codes: R41.0 - Disorientation, unspecified Assessment & Plan: On psychiatric evaluation the patient presents with confusion, partially disoriented, marked poverty of speech and blocking thought. Current presentation started suddenly and has been progressing for the last 5 days, as per . The patient has history of depression with psychosis, she was hospitalized in the summer in [place] for 10 days, discharged on medication mentioned above, she has been followed-up by outpatient psychiatrist, compliant with medications and has been stable until 5 days ago. Her also reports additional symptoms of aphasia, incoherent speech, dizziness and lethargy, especially at the end of the day. There is no evidence of paranoia, perceptual disturbances, delusions at this moment. The patient denies depressive symptoms, denies suicidal and homicidal ideation, denies visual and auditory hallucinations. My impression is that current symptomatology could to be related with delirium secondary to underlying medical conditions. UTI could have part of the responsibility. However, a full neurological workup is crucial to rule out neurological causes of altered mental status, including EEG and potentially LP. Consider myasthenia gravis given the symptoms of incoherent speech and fatigue at the end of the day. Intoxication with psychotropics is also high in the differential, since the patient has been overmedicating, as per , in the context of cognitive impairment. We will re-start Risperdal 0.5 mg twice a day to help with delirium , hold the rest of psychotropics Wellbutrin 150 mg twice a day, Cymbalta 60 mg, benztropine 0.5 mg twice until cognition improved. Patient could be a good candidate for voluntary admission in med psych. We will follow-up. Brief supportive psychotherapy provided. Assessment & Plan Estimated LOS: Americo Galloway MD Jan 12, 2017 12:08
[2017-01-12] MEDS: risperiDONE 0.5 MG TAB PO SCH ×2 (13:00→20:55)
--- NOTE | 2017-01-12 13:15 | HHI.FPPN ---
Subjective Subjective Patient seen and examined with the resident team. Case reviewed and discussed Please refer to resident H&P for further details regarding HPI, ROS, PMH, SurgHx , FH and SocHx In summary, patient is a 56yoF with a PMH of fibromyalgia presenting with a one week history of progressive word finding difficulties, falling at home, and forgetfulness She also has a reported history of significant depression and anxiety with inpatient psych hospitalization earlier this year per the patient. She is seen in her room this am, tearful, reports she is feeling a little better this am, though mornings are reportedly always better for her. [facility] Objective Objective Last Impressions Head CT 01/11/17 163 Signed Impressions: Service Date/Time: Wednesday, January 11, 2017 16:55 - CONCLUSION: Normal examination. Mike Rae MD Chest X-Ray 01/11/179 Signed Impressions: Service Date/Time: Wednesday, January 11, 2017 14:52 - CONCLUSION: No acute disease. Faizan Braden Jr., MD Head Magnetic Resonance Angiography 01/11/17 0000 Signed Impressions: Service Date/Time: Wednesday, January 11, 2017 22:42 - CONCLUSION: No acute abnormality of the intracranial vessels. Small first segment of the right posterior cerebral distribution as above. Santiago Brennan MD Brain MRI 01/11/17 0000 Signed Impressions: Service Date/Time: Wednesday, January 11, 2017 22:42 - CONCLUSION: Normal noncontrast brain MRI. Santiago Brennan MD Laboratory Tests - Abnormals Test 01/11/17 16:45 01/11/17 17:00 01/12/17 01:07 01/12/17 04:36 Urine Turbidity CLOUDY Urine Protein 30 mg/dL Urine Leukocyte Esterase LARGE Urine RBC 16 /hpf Urine WBC 37 /hpf Urine Bacteria MANY /hpf Urine Mucus FEW /lpf Urine Cannabinoids Screen POS Monocytes (%) (Auto) 9.1 % 10.4 % Aspartate Amino Transf (AST/SGOT) 43 U/L Potassium Level 3.2 MEQ/L 3.4 MEQ/L Estimat Glomerular Filtration Rate 62 ML/MIN 76 ML/MIN Total Creatine Kinase 560 U/L 384 U/L 340 U/L Creatine Kinase MB 11.2 NG/ML 6.4 NG/ML 5.5 NG/ML Troponin I LESS THAN 0.02 NG/ML LESS THAN 0.02 NG/ML LESS THAN 0.02 NG/ML Folate GREATER THAN 20.0 NG/ML White Blood Count 2.9 TH/MM3 Hematocrit 34.4 % Lymphocytes (%) (Auto) 47.6 % Neutrophils # (Auto) 1.1 TH/MM3 Blood Urea Nitrogen 6 MG/DL Random Glucose 70 MG/DL Total Protein 5.9 GM/DL Albumin 3.1 GM/DL Calcium Level 8.4 MG/DL Vital Signs 01/11/17 01/11/17 01/11/17 01/11/17 16:08 17:11 18:03 22:20 Temp 99.1 Pulse 94 89 83 Resp 18 27 16 B/P (MAP) 122/86 (98) 114/77 (89) 117/78 (91) Pulse Ox 97 95 96 94 O2 Delivery Room Air Room Air Room Air 01/11/17 01/12/17 01/12/17 01/12/17 23:35 00:50 04:10 04:22 Temp 97.7 98.0 Pulse 83 78 71 75 Resp 16 15 B/P (MAP) 113/73 (86) 103/67 (79) Pulse Ox 96 92 01/12/17 01/12/17 01/12/17 01/12/17 06:09 08:09 09:25 11:11 Temp 98.1 Pulse 79 Resp 20 22 B/P (MAP) 126/80 (95) Pulse Ox 95 98 93 O2 Delivery Nasal Cannula O2 Flow Rate 2.00 INTAKE & OUTPUT 01/13/17 07:00 Intake Total 1000 ml Balance 1000 ml Physical exam GENERAL: wdwn female, tearful SKIN: Warm and dry. No rashes, lesions HEAD: Normocephalic. AT EYES: No scleral icterus. No injection or drainage. ENT: OP clear. MMM NECK: Supple, trachea midline. No JVD or lymphadenopathy. CARDIOVASCULAR: Regular rate and rhythm without audible murmurs, gallops, or rubs. RESPIRATORY: Breath sounds equal and clear bilaterally. No accessory muscle use. GASTROINTESTINAL: Abdomen soft, non-tender, nondistended. Normal active BS MUSCULOSKELETAL: No cyanosis, or edema. NO calf tenderness BACK: Nontender without obvious deformity. No CVA tenderness. NEURO: Awake and alert. Normal speech. CN grossly intact. MAEW. 4-5/5 strength x 4. Forgetfulness throughout the encounter and unable to answer questions without asking me to repeat the question. Often would answer a prior question asked. MMSE: Unable to recall 2/3 words, unable to spell [id number] backwards, unable to tell me the year. Unable to copy picture. Assessment Assessment 56yoF admitted with: Memory difficulty Depression Anxiety Falling at home. Fibromyalgia Hypokalemia Elevated CK PLAN PLAN Concern for dementia vs psychiatric component (?psychomotor retardation) -- patient has been acutely stressed with diagnosis of leukemia in granddaughter Neurology has been consulted Psychiatry has been consulted Replete electrolytes MRI/MRA ST for cognitive assessment PT to eval gait Stop antibiotics- no UTI Resume home meds as appropriate Patient seen and examined. Case reviewed and discussed Agree with plan of care as discussed with me and documented in the resident note. Sanjuanita Mejia MD Jan 12, 2017 13:15
[2017-01-12] MEDS ORDERED: SODIUM CHLORIDE 0.9% FLUSH 5 ML FLUSH IV FLUSH PRN (14:30)
[2017-01-12] MEDS ORDERED: GLUCAGON 1 MG/ML VIAL OTHER PRN (14:30)
[2017-01-12] MEDS ORDERED: DEXTROSE 50% IN WATER 50 ML VIAL(D50) IV PUSH PRN (14:30)
[2017-01-12] MEDS: ASPIRIN 325 MG TAB PO SCH (14:30)
--- NOTE | 2017-01-12 15:08 | RADRPT ---
EXAM DATE/TIME: 01/12/2017 14:31 [facility] COMPARISON: No previous studies available for comparison. INDICATIONS : Cerebrovascular accident. MEDICAL HISTORY : Confusion. Fibromyalgia. Depression. Anxiety. SURGICAL HISTORY : Cholecystectomy. Cardiac catheterizaton. ENCOUNTER: Initial ACUITY: 1 day PAIN SCORE: 0/10 LOCATION: Bilateral neck PEAK SYSTOLIC VELOCITIES (cm/sec): ICA/CCA RATIO: Right: 1.2 Left: 1.8 ICA: Right: 101.2 Left: 115.7 CCA: Right: 86.7 Left: 65.5 ECA: Right: 95.3 Left: 65.6 VERTEBRAL: Right: 47.4 antegrade Left: 51.2 antegrade Elevated flow velocities and ICA/CCA ratios have been found to correlate with increased degrees of vessel stenosis, calculated as percentage of diameter relative to a normal segment of distal ICA/CCA FINDINGS: RIGHT CAROTID: Mild plaque in the carotid bulb and internal carotid artery. No significant stenosis is visualized. The waveforms are within normal limits. LEFT CAROTID: Mild plaque in the carotid bulb and internal carotid artery. No significant stenosis is visualized. The waveforms are within normal limits. VERTEBRAL ARTERIES: Antegrade flow is seen in both vertebral arteries. CONCLUSION: Mild plaque formation bilaterally with hemodynamic parameters characteristic of less than 50% stenosi soPli Pablo MD on January 12, 2017 at 15:04 Board Certified Radiologist. This report was verified electronically.
--- NOTE | 2017-01-12 15:50 | MB ---
cc: WILLIE SCHREIBER M.D. DATE OF CONSULTATION: 01/12/2017 REASON FOR CONSULTATION Intermittent speech difficulties. HISTORY OF PRESENT ILLNESS Ms. Zarco is a pleasant 56-year-old woman who about 5 days ago began to have difficulty getting words out. She states she could think of what she wanted to say but then had trouble getting words out or she would say the wrong word. It lasted several minutes then it would recur. Her last episode was yesterday. She states she had no difficulty with weakness on one side or the other, no numbness, no headaches. PAST MEDICAL HISTORY 1. History of fibromyalgia. 2. History of depression, anxiety. 3. Cholecystectomy. 4. Lumbar spine surgery. MEDICATION Medicines at home: 1. Risperidone 0.5 mg q.12 hours. 2. Duloxetine 60 mg daily. 3. Benztropine 0.5 mg b.i.d. 4. Bupropion ER 150 mg daily. 5. Vitamin D3. ALLERGIES PENICILLIN, GABAPENTIN, MORPHINE. SOCIAL HISTORY She does not smoke. Denies drug abuse. NEUROLOGIC EXAMINATION VITAL SIGNS: Blood pressure is 126/80, pulse 79, respiratory rate is 22, temperature 98 degrees. Higher cortical functions, she is alert, oriented x3. Speech is fluent at this time, she makes no paraphasic errors. Comprehension is normal. Cranial nerves are intact. Motor exam is normal with no drift. Reflexes symmetric. IMAGING STUDIES MRI of the brain is within normal limits. MR angiogram of the brain reveals small P1 segment on the right probably congenital with good filling of the P2 and distal segments bilaterally, otherwise normal. CT brain is normal. LABORATORY DATA The white count is 4000, hemoglobin 13, hematocrit 38.4%, platelet count is 233,000, sed rate is 14, PT 11.3, INR 1, APTT 27.5. Sodium is 139, potassium 3.2, chloride 102. C02 is 30, BUN is 8, creatinine 0.94, GFR 62, glucose 91, AST 43, ALT 45, alk phos 96, B12 934. Tox screen positive for cannabis. Urinalysis pH is 6, specific gravity 1.024. IMPRESSION Intermittent episodes of speech difficulty, possible intermittent aphasia versus possible due to TIA versus anxiety, although cannot rule out TIA. RECOMMENDATIONS Start aspirin 325 mg daily. I would like to get a carotid ultrasound and echocardiogram to rule out any degree of carotid stenosis. Also check telemetry to rule out any atrial fibrillation and will obtain a lipid panel. Thank you for asking me to see the patient in consult. MD ALONDRA Fish/ROBERT /2:27 PM /3:37 PM
[2017-01-12] MEDS: INSULIN ASPART SUPPLEMENTAL SCALE SQ SCH ×2 (17:00→20:56)
[2017-01-12] MEDS: ENOXAPARIN SODIUM 40 MG/0.4 ML SYRINGE SQ SCH (20:55)
[2017-01-12] MEDS: SODIUM CHLORIDE 0.9% FLUSH 5 ML FLUSH IV FLUSH SCH (20:56)
[2017-01-13] VITALS (9 sets, daily range): BP systolic 113–141; BP diastolic 69–88; PULSE 61–77; RESP 16–20; TEMP 97.5–98.2; O2SAT 92–97
[2017-01-13] MEDS: SODIUM CHLOR 0.9% 1000 ML INJ 1,000 ML IV SCH (05:37)
[2017-01-13 07:29] LABS: HEMATOCRIT 33.7 % (35.0-46.0); MEAN CELL VOLUME 84.5 FL (80.0-100.0); MEAN CORPUSCULAR HEMOGLOBIN 29.7 PG (27.0-34.0); MEAN CORPUSCULAR HGB CONC 35.2 % (32.0-36.0); PLATELET COUNT 181 TH/MM3 (150-450); RED BLOOD COUNT 3.99 MIL/MM3 (4.00-5.30); REVIEW FLAG FINAL; WHITE BLOOD COUNT 3.7 TH/MM3 (4.0-11.0)
[2017-01-13 07:56] LABS: BICARBONATE 26.5 MEQ/L (21.0-32.0); POTASSIUM 4.3 MEQ/L (3.5-5.1)
[2017-01-13] MEDS: INSULIN ASPART SUPPLEMENTAL SCALE SQ SCH ×3 (08:00→17:00)
[2017-01-13 08:02] LABS: HDL CHOLESTEROL 25.7 MG/DL (40.0-60.0)
[2017-01-13] MEDS: SODIUM CHLORIDE 0.9% FLUSH 5 ML FLUSH IV FLUSH SCH (08:02)
[2017-01-13] MEDS: DOCUSATE SODIUM 50 MG/SENNA 8.6 MG TAB PO SCH (08:02)
[2017-01-13] MEDS: risperiDONE 0.5 MG TAB PO SCH (08:03)
[2017-01-13] MEDS: ASPIRIN 325 MG TAB PO SCH (08:03)
--- NOTE | 2017-01-13 12:10 | HHI.FPPN ---
Subjective Remarks Ms Zarco had no acute events overnight. She has been seen by psychiatry, neurology and speech therapy. We had a good discussion today and pt would like to go home. She did not exhibit any word finding deficit on interview this morning. Her thought process was logical and goal oriented. We discussed plan of having EEG and ECHO today and waiting to do sleep study as outpt as pt has had low O2 sats on room air overnight and has been told previously that she might benefit from that. Her PCP is Dr Shelton in [facility] and she will get a referral from him. Denies pain, memory problems at this time. (Pranav Cabral MD R1) Objective Vitals Vital Signs Date Time Temp Pulse Resp B/P (MAP) Pulse Ox O2 Delivery O2 Flow Rate FiO2 01/13/17 11:28 98.2 72 16 138/88 (105) 95 01/13/17 09:08 77 01/13/17 08:00 97.5 76 20 141/82 (101) 97 01/13/17 07:11 92 21 01/13/17 04:21 68 01/13/17 03:22 97.9 71 17 113/69 (84) 93 01/13/17 00:55 65 01/12/17 23:26 98.0 68 16 125/75 (92) 96 01/12/17 20:24 96 Nasal Cannula 2.00 01/12/17 19:03 97.5 70 17 126/63 (84) 96 01/12/17 16:00 98.6 72 24 125/76 (92) 92 01/12/17 15:46 69 01/12/17 14:41 69 I/O 01/12/17 01/12/17 01/12/17 01/13/17 01/13/17 01/13/17 07:00 15:00 23:00 07:00 15:00 23:00 Intake Total 1200 ml 1000 ml 150 ml Output Total 1601 ml 650 ml Balance 1200 ml 1000 ml -1601 ml -500 ml Intake Oral 150 ml IV Total 1200 ml 1000 ml Output Urine Total 1600 ml 650 ml Stool Total 1 ml # Voids 1 (Pranav Cabral MD R1) Result Diagram: 01/13/17 0715 01/13/17 0715 Imaging Last Impressions Carotid Artery Ultrasound 01/12/17 0000 Signed Impressions: Service Date/Time: December 14:31 - CONCLUSION: Mild plaque formation bilaterally with hemodynamic parameters characteristic of less than 50%% stenosis. Faizan Pablo MD Head CT 01/11/17 1639 Signed Impressions: Service Date/Time: Wednesday, January 11, 2017 16:55 - CONCLUSION: Normal examination. Mike Rae MD Chest X-Ray 01/11/17 1639 Signed Impressions: Service Date/Time: Wednesday, January 11, 2017 14:52 - CONCLUSION: No acute disease. Faizan Braden Jr., MD Head Magnetic Resonance Angiography 01/11/17 0000 Signed Impressions: Service Date/Time: Wednesday, January 11, 2017 22:42 - CONCLUSION: No acute abnormality of the intracranial vessels. Small first segment of the right posterior cerebral distribution as above. Santiago Brennan MD Brain MRI 01/11/17 0000 Signed Impressions: Service Date/Time: Wednesday, January 11, 2017 22:42 - CONCLUSION: Normal noncontrast brain MRI. Santiago Brennan MD Objective Remarks GENERAL: Well-nourished, well-developed middle aged female lying in bed. SKIN: Warm and dry. No lesions or rashes. HEAD: Normocephalic. Atraumatic. MMM. EYES: No scleral icterus. No injection or drainage. EOMI. NECK: Supple, trachea midline. No JVD or lymphadenopathy. CARDIOVASCULAR: Regular rate and rhythm without murmurs, gallops, or rubs. RESPIRATORY: Breath sounds equal bilaterally. No accessory muscle use. GASTROINTESTINAL: Abdomen soft, non-tender, nondistended. Normal BS. EXTREMITIES: No cyanosis, or edema. Normal sensory and muscle strength. NEUROLOGICAL: Awake, alert, and oriented x 3. Non-focal. Procedures ECHO and EEG 01/13 Medications and IVs Current Medications Medications (Trade) Dose Ordered Sig/Eric Route Start Time Stop Time Status Last Admin (Tylenol) 650 mg Q4H PRN PO 01/11/17 22:15 (Zofran Inj) 4 mg Q6H PRN IVP 01/11/17 22:15 (Lovenox Inj) 40 mg Q24H SQ 01/11/17 22:00 01/12/17 20:55 (Narcan Inj) 0.4 mg UNSCH PRN IV PUSH 01/11/17 22:15 (Leslye-Colace) 1 tab BID PO 01/12/17 09:00 01/12/17 20:55 (Milk Of Magnesia Liq) 30 ml Q12H PRN PO 01/11/17 22:15 (Senokot) 17.2 mg Q12H PRN PO 01/11/17 22:15 (Dulcolax Supp) 10 mg DAILY PRN RECTAL 01/11/17 22:15 (Lactulose Liq) 30 ml DAILY PRN PO 01/11/17 22:15 (Motrin) 600 mg Q8H PRN PO 01/11/17 22:30 01/12/17 08:19 (risperDAL) 0.5 mg Q12HR PO 01/12/17 11:45 01/13/17 08:03 (NS Flush) 2 ml BID IV FLUSH 01/12/17 21:00 (NS Flush) 2 ml UNSCH PRN IV FLUSH 01/12/17 14:30 (Aspirin) 325 mg DAILY PO 01/12/17 14:30 01/13/17 08:03 (NovoLOG SUPPLEMENTAL SCALE) 1 ACHS SQ 01/12/17 17:00 (D50w (Vial) Inj) 50 ml UNSCH PRN IV PUSH 01/12/17 14:30 (Glucagon Inj) 1 mg UNSCH PRN OTHER 01/12/17 14:30 (Lipitor) 10 mg DAILY PO 01/13/17 14:00 (Pranav Cabral MD R1) Urinary Catheter: No (Pranav Cabral MD R1) Vascular Central Line Catheter: No (Pranav Cabral MD R1) A/P Assessment and Plan Mrs. Zarco is a 56yo with PMH of fibromyalgia and depression presenting with difficulty with speech and confusion. Brain MRI/MRA, Head CT, and CXR negative. Carotid US showing mild carotid artery plaque, but <50% stenosis. Neurology suggests possible TIA since imaging and neuro checks negative for CVA. Psych eval suggested overmedication vs metabolic etiology vs early dementia vs myasthenia gravis and is holding some psychotropic meds. Afebrile, VSS, CBC wnl, UA requiring cx that was contaminated with regular derrick. ECHO and EEG performed today and pending. On exam today, logical thought process, goal oriented, no word finding problems. Consider early dementia vs TIA vs substance abuse (UDS+ cannabinoids) vs overmedication with current medications vs myasthenia gravis. Seen and discussed with Dr Mejia Discharge Planning Discharge today if results of EEG/ECHO are wnl; neurology has signed off (Pranav Cabral MD R1) Attending Attestation Patient seen and examined with the resident team. Case reviewed and discussed Agree with plan of care as discussed with me and documented in the resident note. (Sanjuanita Mejia MD) Problem List: (1) Neurological abnormality ICD Codes: R29.818 - Other symptoms and signs involving the nervous system Status: Acute Plan: Pt presenting with difficulty in speech, confusion, increasing forgetfulness. Has chronic weakness in her LLE. Not concerned for expressive aphasia as patient states that it happens mainly in the evening time, her speech is fluent, no agrammatism. Head CT, brain MRI, brain MRA all negative. No clear etiology to her symptoms. Suspect a psychological component due to her PMH. Will rule out seizure etiology as well. Will also rule out polymyositis due to elevated CPK. * CPK high but resolvin->384->340 * ANIYAH pending to rule out autoimmune etiology * CK-MB high but resolvin.2->6.4->5.5; however percent wnl (2.0-.1.7->1.6) * EKG suggestive of possible inferior infarct; however, Troponins x3 <0.02; ECHO pending to r/o cardiac etiology * B12 and folate normal and high respectively * CBC with WBC low at 3.7 likely 2/2 hemodilution on IVF (was 4.0 on admit) * CMP wnl * Ammonia level wnl (25) * TSH wnl (0.907) * UDS positive cannabinoids * EEG pending * Neurology consulted, appreciate recommendations * Started on ASA 325mg * ECHO * Lipid panel with: Trig 178/ Chol 166/ LDL 105/ HDL 25.7/ Chol/HDL ratio 6.45 * Dr Tee plans to follow as outpt * Psychiatry consulted, appreciate recommendations * Holding benztropine * Considering overmedication vs myasthenia gravis vs metabolic/autoimmune * PT recommends home with no PT * Speech therapy indicates regular diet, thin liquids and continued speech intervention at discharge for thorough cognitive workup * Neuro checks q4h * Fall precautions (2) UTI (urinary tract infection) ICD Codes: N39.0 - Urinary tract infection, site not specified Status: Acute Plan: Pt with urinary frequency, urgency, and intermittent hematuria. UA shows large leukocyte esterase, high RBCs and WBCs, and many bacteria. No leukocytosis. Pt had right CVA tenderness on exam, but afebrile with no fever/ chills at home. Urine Cx with contaminants--no UTI * Given one dose of Ciprofloxacin 400mg IV on 01/12 * Discontinued Bactrim 800-160mg po q12h later in the AM on 01/13 * Discontinue IVF 01/13--pt taking PO * Urine cx negative for infection--contamination with normal derrick (3) Depression ICD Codes: F32.9 - Major depressive disorder, single episode, unspecified Status: Chronic Plan: Pt with a hx of psychiatric hospitalization due to SI, depression, paranoid delusions, and auditory hallucinations. Patient tearful on examination and speaking of visual hallucinations, but unwilling to talk about them. Denies SI at this time. * Psychiatry consulted, appreciate recommendations * Holding Benztropine and vitamin D3 per recs * TSH wnl * Risperidone level pending (4) Elevated creatine kinase level ICD Codes: R74.8 - Abnormal levels of other serum enzymes Status: Acute Plan: CPK elevated to 560 and trending down -ANIYAH pending (5) Hypokalemia ICD Codes: E87.6 - Hypokalemia Status: Acute Plan: Potassium low at 3.2 upon admission to ED. Normal on 01/13 * Given Potassium Chlorida 40 meq po in ED * Will monitor and replete as needed (6) FEN Status: Acute Plan: Fluids: oral fluids Electrolytes: hypokalemia noted, monitor and replete as needed Nutrition: regular diet DVT Prophylaxis: Early ambulation. Lovenox 40mg subQ q24hr since Head CT negative GI Prophylaxis: none indicated at this time Fever/Pain: Tylenol 650mg po PRN/Motrin 600mg po TID PRN (takes this regimen at home) Nausea: Zofran 4mg PRN (Pranav Cabral MD R1) Problem Qualifiers (1) UTI (urinary tract infection): (2) Depression: Qualified Codes: F32.9 - Major depressive disorder, single episode, unspecified Pranav Cabral MD R1 Jan 13, 2017 12:10 Sanjuanita Mejia MD Jan 20, 2017 11:36
--- NOTE | 2017-01-13 13:15 | EKG ---
Date Performed: 01/12/2017 Time Performed: 13:05:22 PTAGE: 56 years EKG: Sinus rhythm LOW QRS VOLTAGE IN PRECORDIAL LEADS PROBABLE INFERIOR MYOCARDIAL INFARCTION. Since previous tracing, no significant change noted ABNORMAL ECG PREVIOUS TRACING : 01/12/2017 06.00 DOCTOR: Jaiden Davila Interpretating Date/Time 01/13/2017 13:13:21
--- NOTE | 2017-01-13 13:54 | HHI.PR ---
Review/Management Diagnosis possible TIA. Carotid US negative Plan continue aspirin 325 mg daily add statin for elevated LDL follow up echo ok to discharge from neuro standpoint if echo normal and follow up with me outpatient 2-3 weeks Diagnosis/Plan: Subjective Subjective Comments No acute events reported No headache no recurrent episodes of speech difficulty Active Medications Current Medications Medications (Trade) Dose Ordered Sig/Eric Route Start Time Stop Time Status Last Admin (NS Flush) 2 ml UNSCH PRN IVF 01/11/17 16:45 (Tylenol) 650 mg Q4H PRN PO 01/11/17 22:15 (Zofran Inj) 4 mg Q6H PRN IVP 01/11/17 22:15 (Lovenox Inj) 40 mg Q24H SQ 01/11/17 22:00 01/12/17 20:55 (Narcan Inj) 0.4 mg UNSCH PRN IV PUSH 01/11/17 22:15 (Leslye-Colace) 1 tab BID PO 01/12/17 09:00 01/12/17 20:55 (Milk Of Magnesia Liq) 30 ml Q12H PRN PO 01/11/17 22:15 (Senokot) 17.2 mg Q12H PRN PO 01/11/17 22:15 (Dulcolax Supp) 10 mg DAILY PRN RECTAL 01/11/17 22:15 (Lactulose Liq) 30 ml DAILY PRN PO 01/11/17 22:15 (Motrin) 600 mg Q8H PRN PO 01/11/17 22:30 01/12/17 08:19 (risperDAL) 0.5 mg Q12HR PO 01/12/17 11:45 01/13/17 08:03 (NS Flush) 2 ml BID IV FLUSH 01/12/17 21:00 (NS Flush) 2 ml UNSCH PRN IV FLUSH 01/12/17 14:30 (Aspirin) 325 mg DAILY PO 01/12/17 14:30 01/13/17 08:03 (NovoLOG SUPPLEMENTAL SCALE) 1 ACHS SQ 01/12/17 17:00 (D50w (Vial) Inj) 50 ml UNSCH PRN IV PUSH 01/12/17 14:30 (Glucagon Inj) 1 mg UNSCH PRN OTHER 01/12/17 14:30 Allergies Allergies Coded Allergies Penicillins (Verified Allergy, Unknown, 01/11/17) gabapentin (Verified Allergy, Unknown, 01/11/17) morphine (Verified Allergy, Unknown, 01/11/17) Exam I&O / VS Vital Signs Date Time Temp Pulse Resp B/P (MAP) Pulse Ox O2 Delivery O2 Flow Rate FiO2 01/13/17 11:28 98.2 72 16 138/88 (105) 95 01/13/17 09:08 77 01/13/17 08:00 97.5 76 20 141/82 (101) 97 01/13/17 07:11 92 21 01/13/17 04:21 68 01/13/17 03:22 97.9 71 17 113/69 (84) 93 01/13/17 00:55 65 01/12/17 23:26 98.0 68 16 125/75 (92) 96 01/12/17 20:24 96 Nasal Cannula 2.00 01/12/17 19:03 97.5 70 17 126/63 (84) 96 01/12/17 16:00 98.6 72 24 125/76 (92) 92 01/12/17 15:46 69 01/12/17 14:41 69 Exam Comments alert, speech normal CN intact MOTOR 5/5 BUE and BLE Objective Micro and Labs Laboratory Tests Test 01/12/17 16:01 01/13/17 07:15 Ammonia 25 White Blood Count 3.7 Red Blood Count 3.99 Hemoglobin 11.9 Hematocrit 33.7 Mean Corpuscular Volume 84.5 Mean Corpuscular Hemoglobin 29.7 Mean Corpuscular Hemoglobin Concent 35.2 Red Cell Distribution Width 15.0 Platelet Count 181 Mean Platelet Volume 7.4 Blood Urea Nitrogen 4 Creatinine 0.78 Random Glucose 83 Calcium Level 8.4 Sodium Level 142 Potassium Level 4.3 Chloride Level 110 Carbon Dioxide Level 26.5 Anion Gap 6 Estimat Glomerular Filtration Rate 77 Triglycerides Level 178 Cholesterol Level 166 LDL Cholesterol 105 HDL Cholesterol 25.7 Cholesterol/HDL Ratio 6.45 Date/Time Source Procedure Growth Status 01/11/17 16:45 Urine Catheterized Urine Urine Culture - Final 50-100,000 CFU/ML MIXED GRAM POSITIVE... Complete Chavo Tee PhD Jan 13, 2017 13:54
[2017-01-13] MEDS ORDERED: ATORVASTATIN 10 MG TAB PO SCH (14:00)
--- NOTE | 2017-01-13 14:14 | HHI.FPPN ---
Subjective Remarks Ms Zarco had no acute events overnight. She has been seen by psychiatry, neurology and speech therapy. We had a good discussion today and pt would like to go home. She did not exhibit any word finding deficit on interview this morning. We discussed plan of having EEG and ECHO today and waiting to do sleep study as outpt as pt has had low O2 sats on room air overnight and has been told previously that she might benefit from that. Denies CP, SOB, N/V/D, and DVT pain. Objective Vitals Vital Signs Date Time Temp Pulse Resp B/P (MAP) Pulse Ox O2 Delivery O2 Flow Rate FiO2 01/13/17 11:28 98.2 72 16 138/88 (105) 95 01/13/17 09:08 77 01/13/17 08:00 97.5 76 20 141/82 (101) 97 01/13/17 07:11 92 21 01/13/17 04:21 68 01/13/17 03:22 97.9 71 17 113/69 (84) 93 01/13/17 00:55 65 01/12/17 23:26 98.0 68 16 125/75 (92) 96 01/12/17 20:24 96 Nasal Cannula 2.00 01/12/17 19:03 97.5 70 17 126/63 (84) 96 01/12/17 16:00 98.6 72 24 125/76 (92) 92 01/12/17 15:46 69 01/12/17 14:41 69 I/O 01/12/17 01/12/17 01/12/17 01/13/17 01/13/17 01/13/17 07:00 15:00 23:00 07:00 15:00 23:00 Intake Total 1200 ml 1000 ml 150 ml Output Total 1601 ml 650 ml Balance 1200 ml 1000 ml -1601 ml -500 ml Intake Oral 150 ml IV Total 1200 ml 1000 ml Output Urine Total 1600 ml 650 ml Stool Total 1 ml # Voids 1 Result Diagram: 01/13/17 0715 01/13/17 0715 A/P Assessment and Plan Mrs. Zarco is a 56yo with PMH of fibromyalgia and depression presenting with difficulty with speech and confusion. Head CT was negative. She is admitted to observation. Problem List: (1) Neurological abnormality ICD Codes: R29.818 - Other symptoms and signs involving the nervous system Status: Acute Plan: Pt presenting with difficulty in speech, confusion, increasing forgetfulness. Has chronic weakness in her LLE. Not concerned for expressive aphasia as patient states that it happens mainly in the evening time, her speech is fluent, no agrammatism. Head CT, brain MRI, brain MRA all negative. No clear etiology to her symptoms. Suspect a psychological component due to her PMH. Will rule out seizure etiology as well. Symptoms could also be explained from sepsis due to UTI. Will also rule out polymyositis due to elevated CPK. * CPK elevated at 560, will repeat x2 overnight * ANIYAH, ESR ordered to rule out autoimmune etiology * CKMB elevated at 11.2, will repeat x2 * Troponin negative x1, will repeat x2 with EKG * B12 and folate pending * Repeat CBC and CMP in AM * UDS pending * EEG ordered to rule out seizures * Neurology consulted, appreciate recommendations * Psychiatry consulted, appreciate recommendations * PT consulted for evaluation * Neuro checks q4h * Fall precautions (2) UTI (urinary tract infection) ICD Codes: N39.0 - Urinary tract infection, site not specified Status: Acute Plan: Pt with urinary frequency, urgency, and intermittent hematuria. UA shows large leukocyte esterase, high RBCs and WBCs, and many bacteria. No leukocytosis. Pt had right CVA tenderness on exam, but afebrile with no fever/ chills at home. * Given one dose of Ciprofloxacin 400mg IV on 01/12 * Will start her on Bactrim 800-160mg po q12h later in the AM on 01/12 * IVF at 1.5 maintenance, NS @ 160mls/hr * Urine cx pending (3) Depression ICD Codes: F32.9 - Major depressive disorder, single episode, unspecified Status: Chronic Plan: Pt with a hx of psychiatric hospitalization due to SI, depression, paranoid delusions, and auditory hallucinations. Patient tearful on examination and speaking of visual hallucinations, but unwilling to talk about them. Denies SI at this time. * Will hold at home medications until she sees Psychiatry * Psychiatry consulted, appreciate recommendations * TSH and Risperidone level pending (4) Elevated creatine kinase level ICD Codes: R74.8 - Abnormal levels of other serum enzymes Status: Acute Plan: CPK elevated to 560. Will follow. (5) Hypokalemia ICD Codes: E87.6 - Hypokalemia Status: Acute Plan: Potassium low at 3.2 upon admission to ED. * Given Potassium Chlorida 40 meq po in ED * Will monitor and replete as needed (6) FEN Status: Acute Plan: Fluids: tolerating PO and NS @ 160ml/hr Electrolytes: hypokalemia noted, monitor and replete as needed Nutrition: regular diet DVT Prophylaxis: Early ambulation. Lovenox 40mg subQ q24hr since Head CT negative GI Prophylaxis: none indicated at this time Fever/Pain: Tylenol 650mg po PRN/Motrin 600mg po TID PRN (takes this regimen at home) Nausea: Zofran 4mg PRN Problem Qualifiers (1) UTI (urinary tract infection): Pranav Cabral MD R1 Jan 13, 2017 14:14
[2017-01-13] MEDS ORDERED: LIPI10TA PO (14:54)
--- NOTE | 2017-01-13 14:55 | HHI.DCPOC ---
Discharge Care Plan Goals to Promote Your Health * To prevent worsening of your condition and complications, please take all medications as prescribed. * To maintain your health at the optimal level, please follow up with your primary care doctor within 1 week for evaluation and to get a referral for a sleep study as discussed. Directions to Meet Your Goals Take your medications as prescribed Follow your dietary instruction Follow activity as directed Keep your appointments as scheduled Take your immunizations and boosters as scheduled If your symptoms worsen call your PCP, if no PCP go to Urgent Care Center or Emergency Room Smoking is Dangerous to Your Health. Avoid second hand smoke Call the 24-hour hour crisis hotline for domestic abuse at Pranav Cabral MD R1 Jan 13, 2017 14:55
--- NOTE | 2017-01-13 14:55 | MG ---
cc: CCList Lab No: [id number] Date: 01/13/2017 Age: Sex: F Race: Cc. TECHNIQUE 17 channel EEG. DESCRIPTION Background rhythm reveals symmetrical alpha rhythm frequency 8 Hz amplitude about 20 microvolts during drowsiness there is some slowing in the theta range. There are no lateralizing features seen. There are no epileptiform discharges present. Photic results in a fairly well-developed driving response. INTERPRETATION Overall normal EEG. MD ALONDRA Fish/aida /1:40 PM /2:48 PM
--- NOTE | 2017-01-13 15:09 | ECHRPT ---
Indication: cva/tia CONCLUSIONS The left ventricular systolic function is hyperdynamic with an estimated ejection fraction in the ra nge of 65- 70%. Normal left ventricular size. Wall thickness is normal. Mild mitral valve regurgitation. There is mild tricuspid valve regurgitation. The pulmonary valve is not well visualized. BP: / HR: Rhythm: MEASUREMENTS (Male / Female) Normal Values Technical Quality:Good 2D ECHO LV Diastolic Diameter PLAX 4.1 cm 4.2 - 5.9 / 3.9 - 5.3 cm LV Systolic Diameter PLAX 2.8 cm IVS Diastolic Thickness 1.0 cm 0.6 - 1.0 / 0.6 - 0.9 cm LVPW Diastolic Thickness 0.7 cm 0.6 - 1.0 / 0.6 - 0.9 cm LV Relative Wall Thickness 0.4 RV Internal Dim ED PLAX 3.0 cm M-MODE Aortic Root Diameter MM 3.1 cm LA Systolic Diameter MM 3.9 cm LA Ao Ratio MM 1.3 AV Cusp Separation MM 1.6 cm DOPPLER Mitral E Point Velocity 65.2 cm/s Mitral A Point Velocity 66.6 cm/s Mitral E to A Ratio 1.0 LV E' Lateral Velocity 9.3 cm/s Mitral E to LV E' Lateral Ratio 7.0 LV E' Septal Velocity 8.6 cm/s Mitral E to LV E' Septal Ratio 7.6 FINDINGS LEFT VENTRICLE The left ventricular systolic function is hyperdynamic with an estimated ejection fraction in the ra nge of 65- 70%. Normal left ventricular size. Wall thickness is normal. RIGHT VENTRICLE Normal right ventricular size and systolic function. LEFT ATRIUM The left atrial size is normal. RIGHT ATRIUM The right atrial size is normal. ATRIAL SEPTUM Normal atrial septal thickness without atrial level shunting by limited color doppler interrogation. AORTA The aortic root and proximal ascending aorta are normal in size on limited imaging. MITRAL VALVE Mild mitral valve regurgitation. Structurally normal mitral valve. AORTIC VALVE Trileaflet aortic valve. No aortic valve stenosis or regurgitation. TRICUSPID VALVE There is mild tricuspid valve regurgitation. Structurally normal tricuspid valve. PULMONARY VALVE The pulmonary valve is not well visualized. VESSELS The inferior vena cava is normal in size. PERICARDIUM No pericardial effusion. Mike Heredia MD, FACC (Electronically Signed) Final Date:13 January 2017 15:08
[2017-01-13 16:43] LABS: HEMOGLOBIN A1a 1.4 %; HEMOGLOBIN A1b 0.8 %; HEMOGLOBIN Ao 86.1 %; HEMOGLOBIN F 0.9 %; HEMOGLOBIN LA1C 1.6 %; HEMOGLOBIN P3 3.3 %
--- NOTE | 2017-01-15 15:17 | HHI.DS ---
Discharge Summary Admission Date Jan 11, 2017 at 20:22 Discharge Date: Jan 13, 2017 Admitting Diagnosis neurological symptoms (1) Neurological abnormality Diagnosis: Principal ICD Codes: R29.818 - Other symptoms and signs involving the nervous system Status: Acute (2) UTI (urinary tract infection) Diagnosis: Principal ICD Codes: N39.0 - Urinary tract infection, site not specified Status: Acute (3) Depression Diagnosis: Secondary ICD Codes: F32.9 - Major depressive disorder, single episode, unspecified Status: Chronic (4) Elevated creatine kinase level Diagnosis: Principal ICD Codes: R74.8 - Abnormal levels of other serum enzymes Status: Acute (5) Hypokalemia Diagnosis: Secondary ICD Codes: E87.6 - Hypokalemia Status: Acute (6) FEN Diagnosis: Secondary Plan: Status: Acute Consultants Neurology Psychiatry Procedures ECHO and EEG 01/13 Brief History Mrs. Haroldo khalil is a 56-year-old white female with past medical history of fibromyalgia and depression presenting to the ED for confusion and "expressive aphasia." She states that her symptoms started a week ago. She has been experiencing dizziness, lightheadedness, confusion, disorientation and "expressive aphasia". She states that she knows what she wants to say, but things come out totally different. She is also unable to remember what she was going to say when she starts speaking. Her states that sometimes she starts speaking nonsense words or she talks about things that are nonsense and different from what they were talking about in conversation. She states that the symptoms are worse at the end of the day. She is also unable to lift and unable to remember where things are in her home. She states that she has had fibromyalgia for years. 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 However, the weakness happens if she is up a long time or is walking long distances. Her foot feels weak and that she falls. She also has tarsal tunnel that has gotten progressively worse over the past week. She has also had decreased appetite, only eating crackers and cheese. Was recently hospitalized at the end of August at [facility] in [place], [place]. She signed herself into the psychiatric [facility] for severe depression and anxiety. She was also having paranoid delusions and auditory hallucinations. She felt that people were talking about her and out to get her. She was also having SI from her physical ailments that were overwhelming for her at the time. She regularly sees a psychiatrist, Dr. Mullen, in [place], [place]. She is taking risperidone, duloxetine, benztropine, and bupropion. She states that after starting these meds at her hospital stay she started feeling better. Side effects that she experienced are tremors but she is taking another medication for that. She has recently experienced visual hallucinations, but declined to talk about that. No SI/HI. Of note, her 2-year-old granddaughter was recently diagnosed with cancer yesterday. No recent illnesses, no fever or chills, no headaches. During the interview she repeatedly asked for me to repeat my questions right after I asked them because she couldn't remember what I had just said. She was also intermittently tearful from frustration about her situation. CBC/BMP: 01/13/17 0715 01/13/17 0715 Significant Findings Laboratory Tests Test 01/12/17 16:01 01/13/17 07:15 White Blood Count 3.7 TH/MM3 (4.0-11.0) Red Blood Count 3.99 MIL/MM3 (4.00-5.30) Hematocrit 33.7 % (35.0-46.0) Blood Urea Nitrogen 4 MG/DL (7-18) Calcium Level 8.4 MG/DL (8.5-10.1) Chloride Level 110 MEQ/L (98-107) Estimat Glomerular Filtration Rate 77 ML/MIN (>89) Triglycerides Level 178 MG/DL (42-150) LDL Cholesterol 105 MG/DL (0-99) HDL Cholesterol 25.7 MG/DL (40.0-60.0) Imaging Last Impressions Carotid Artery Ultrasound 01/12/17 0000 Signed Impressions: Service Date/Time: December 14:31 - CONCLUSION: Mild plaque formation bilaterally with hemodynamic parameters characteristic of less than 50%% stenosis. Faizan Pablo MD Head CT [id number]/11/171638 Signed Impressions: Service Date/Time: Wednesday, January 11, 2017 16:55 - CONCLUSION: Normal examination. Mike Rae MD Chest X-Ray [id number]/11/171638 Signed Impressions: Service Date/Time: Wednesday, January 11, 2017 14:52 - CONCLUSION: No acute disease. Faizan Braden Jr., MD Head Magnetic Resonance Angiography 01/11/17 0000 Signed Impressions: Service Date/Time: Wednesday, January 11, 2017 22:42 - CONCLUSION: No acute abnormality of the intracranial vessels. Small first segment of the right posterior cerebral distribution as above. Santiago Brennan MD Brain MRI 01/11/17 0000 Signed Impressions: Service Date/Time: Wednesday, January 11, 2017 22:42 - CONCLUSION: Normal noncontrast brain MRI. Santiago Brennan MD PE at Discharge GENERAL: Well-nourished, well-developed middle aged female lying in bed. SKIN: Warm and dry. No lesions or rashes. HEAD: Normocephalic. Atraumatic. MMM. EYES: No scleral icterus. No injection or drainage. EOMI. NECK: Supple, trachea midline. No JVD or lymphadenopathy. CARDIOVASCULAR: Regular rate and rhythm without murmurs, gallops, or rubs. RESPIRATORY: Breath sounds equal bilaterally. No accessory muscle use. GASTROINTESTINAL: Abdomen soft, non-tender, nondistended. Normal BS. EXTREMITIES: No cyanosis, or edema. Normal sensory and muscle strength. NEUROLOGICAL: Awake, alert, and oriented x 3. Non-focal. Hospital Course Ms Garcia is a 56YO female w/PMHx of fibromyalgia and depression who presented with confusion, short term memory deficits, and word finding difficulty. She has chronic weakness in her LLE and has trouble climbing the stairs. Pt states sxs are worse in the evening. Pt is afebrile, VSS, but is tearful. Head CT, brain MRI, brain MRA, and CXR are all negative for s/s of pathology. Carotid US w/Doppler found mild plaque bilaterally but <50% stenosis. UA leuko esterase positive; however, urine culture showed normal derrick with no infection. On admit, CPK elevated to 560 and downtrends before discharge. Similarly, CK-MB elevated to 11.2, then downtrends, but percent (2.0- .1.7->1.6) is wnl. Serial EKGs suggestive of possible inferior infarct; however , Troponins x3 <0.02; ECHO wnl with LV systolic function hyperdynamic with estimated EF of 65-70%; normal LV size; wall thickness is normal; mild mitral valve and tricuspid valve regurgitation; and pulmonary valve is not well visualized. B12 and folate normal and high respectively; CBC with WBC low at 3.7 likely 2/2 hemodilution on IVF (was 4.0 on admit); CMP wnl; Ammonia level wnl (25); TSH wnl (0.907); however, UDS positive for cannabinoids. Neurology was consulted and started on ASA 325mg PO for TIA/CVA prophylaxis. EEG is normal. Lipid panel with mildly elevated Trig 178 and LDL 105; normal Chol, and low HDL 25.7. Chol/HDL ratio 6.45. Dr Tee, neurology, plans to follow on outpt basis. Psychiatry was consulted and held benztropine and suggested we consider etiology to be overmedication vs myasthenia gravis vs metabolic/autoimmune. PT recommended discharge home with no PT. Speech therapy indicated regular diet, thin liquids and continued speech intervention at discharge for thorough cognitive workup. At discharge, the pt's mentation is significantly improved with no word finding deficits, no memory lapses, and logical, goal oriented speech. VSS, physical exam benign. ANIYAH level and risperidone level are pending; consider polymyositis vs other autoimmune disease in DDx, as well as cannabinoid intoxication in addition to thoughts provided by psychiatry. Pt Condition on Discharge: Stable Discharge Disposition: Discharge Home Discharge Instructions DIET: Follow Instructions for: As Tolerated, No Restrictions Additional Diet Instructions: thin liquids Activities you can perform: Weight Bearing as Lam Follow up Referrals: Neurology - 3 Weeks with Chavo Tee PhD PCP Follow-up - 1 Week New Orders: Speech Therapy - 2 Weeks New Medications: Atorvastatin (Lipitor) 10 Mg Tab 10 MG PO DAILY, #30 TAB 0 Refills Continued Medications: Bupropion HCl ER 24 HR (Bupropion HCl ER 24 HR) 150 Mg Tab 150 MG PO DAILY for Control Depression, #1 TAB [address] (Duloxetine DR) 60 Mg Capdr 60 MG PO DAILY, #30 CAP 0 Refills Risperidone (Risperidone) 0.5 Mg Tab 0.5 MG PO Q12HR, #60 TAB 0 Refills Discontinued Medications: Benztropine (Benztropine) 0.5 Mg Tab 0.5 MG PO BID, #60 TAB 0 Refills Cholecalciferol (Vitamin D-3) 1,000 Unit Cap 1000 UNITS PO HS, #1 TAB Pranav Cabral MD R1 Jan 15, 2017 15:17
[2017-01-18 11:53] LABS: OH-RISPERIDONE 4.5 ng/mL; RISPERIDONE + 9OH RISPERIDONE 9.7 ng/mL
== END 2017-01-13 18:01 | disposition home or self-care (01) ==
LOC: NEPE 16:05 → NEDA 20:22 → NEPHCDU 23:18 → NEPFCDU 01-12 05:52
PROVIDERS: ADMIT Family Medicine; ATTEND Family Medicine
DX: R29.818 Other symptoms and signs involving the nervous system (principal); M79.7 Fibromyalgia; N39.0 Urinary tract infection, site not specified; I65.23 Occlusion and stenosis of bilateral carotid arteries; F22 Delusional disorders; F41.8 Other specified anxiety disorders; R74.8 Abnormal levels of other serum enzymes; E87.6 Hypokalemia; R29.6 Repeated falls; R94.31 Abnormal electrocardiogram [ECG] [EKG]; D72.819 Decreased white blood cell count, unspecified; Y92.009 Unspecified place in unspecified non-institutional (private) residence as the place of occurrence of the external cause; Z79.82 Long term (current) use of aspirin
CPT/HCPCS: 70450; 70544; 70551; 71010; 80048; 80053; 80061; 80307; 80342; 81001; 82140; 82550; 82552; 82607; 82746; 82948; 83036; 83735; 84100; 84443; 84484; 85025; 85027; 85610; 85652; 85730; 86038; 87086; 92523; 93005; 93306; 93880; 95819; 96125; 96361; 96365; 96372; 96375; 97161; 99285; G0378; G8987; G8988; G8989; G9162; G9163; G9164; G9168; G9169; G9170; J0744; J1650; J2405; J7030